=== PATIENT | female | born 1975 | race Caucasian/White ===

== ENCOUNTER 2016-08-08 15:20 | Inpatient (IN) | payer MEDICAID, OTHER ==
[~2016-08-08] VITALS: Ht 160 cm; Wt 59.9 kg
[~2016-08-08 15:20] MED LIST: ALBU18HF2 IH; ALLO100T PO; ALPR2TAB2 PO; ASPI-1035 PO; CARV6.2548 PO; FLUT1DIS3 INH; FURO-151 PO; GABA-531 PO; HYDR-3933 PO; LUBI24CA5 PO; MEGE400O PO; METH2.5T PO; P20 PO; PANT40TA4 PO; POTA10CA42 PO; SIMV10TA2 PO; TEMA15CA46 PO
[2016-08-08] MEDS ORDERED: ONDANSETRON HCL 4MG/2ML VIAL IV STA (17:24)
[2016-08-08] MEDS ORDERED: MORPHINE SULFATE 4 MG/ML CPJ (NOT FOR IM USE) IV STA (17:24)
[2016-08-08] MEDS ORDERED: FUROSEMIDE 40MG/4ML VIAL IV STA (17:24)
[2016-08-08 17:51] LABS: BASOPHILS % 0.2 % (0.0-2.0); EOSINOPHILS % 1.5 % (0.0-5.0); HEMATOCRIT. 27.6 % (36.0-48.0); HEMOGLOBIN. 8.3 g/dL (12.0-16.0); LYMPHOCYTES % 10.7 % (20.0-50.0); MEAN CORPUSCULAR HEMOGLOBIN 26.1 pg (28.0-32.0); MEAN CORPUSCULAR HGB CONC 29.9 g/dL (31.0-37.0); MEAN CORPUSCULAR VOLUME 87.2 fL (81.0-99.0); MEAN PLATELET VOLUME 7.5 fl (7.4-10.4); MONOCYTES % 2.7 % (2.0-8.0); NEUTROPHILS % 84.9 % (40.0-76.0); PLATELET 294 x1000/uL (130-400); RED BLOOD CELL COUNT 3.16 mill/uL (4.2-5.4); RED CELL DISTRIBUTION WIDTH 18.6 % (11.6-14.6); WHITE BLOOD COUNT 18.9 x1000/uL (4.5-11.0)
[2016-08-08 17:58] LABS: PROTHROMBIN TIME 10.5 sec
[2016-08-08 18:08] LABS: ALANINE AMINOTRANSFERASE 12 IU/L (13-61); ALBUMIN 2.3 g/dL (3.4-5.0); ANION GAP 14; CALCIUM 7.4 mg/dL (8.5-10.1); CARBON DIOXIDE 25 mEq/L (21-32); CHLORIDE 107 mEq/L (98-107); CREATINE KINASE 21 IU/L (26-192); INDEX HEMOLYSI 1 (1-3); INDEX ICTERIC 1 (1-4); INDEX LIPEMIC 1 (1-3); LIPASE 372 IU/L (73-393); NT PRO B-TYPE NATRIURETIC PEP 1063 pg/mL (5-125); TROPONIN I < 0.02 ng/mL (0.00-0.04); UREA NITROGEN BLOOD 31 mg/dL (7-21); eGFR > 60 mL/min (>60)
[2016-08-08 18:13] LABS: THYROID STIMULATING HORMONE 0.98 uIU/mL (0.36-3.74)
[2016-08-08] MEDS ORDERED: PIPERACILLIN/TAZ 3.375G PREMIX 50 ML IV ONE (19:30)
[2016-08-09] MEDS ORDERED: ACETAMINOPHEN 325MG TABLET PO PRN (03:30)
[2016-08-09] MEDS ORDERED: ONDANSETRON HCL 4MG/2ML VIAL IV PRN (03:30)
[2016-08-09] MEDS ORDERED: MORPHINE SULFATE 2 MG/ML CPJ (NOT FOR IM USE) IV PRN (03:30)
[2016-08-09] MEDS: LEVOFLOXACIN 500MG PREMIX 100 ML IV SCH (06:48)
[2016-08-09 08:25] LABS: BASOPHILS % 0.4 % (0.0-2.0); EOSINOPHILS % 1.6 % (0.0-5.0); HEMOGLOBIN. 7.8 g/dL (12.0-16.0); LYMPHOCYTES % 12.4 % (20.0-50.0); MEAN CORPUSCULAR HEMOGLOBIN 26.2 pg (28.0-32.0); MEAN CORPUSCULAR HGB CONC 30.1 g/dL (31.0-37.0); MEAN CORPUSCULAR VOLUME 86.9 fL (81.0-99.0); MEAN PLATELET VOLUME 7.2 fl (7.4-10.4); MONOCYTES % 4.3 % (2.0-8.0); NEUTROPHILS % 81.3 % (40.0-76.0); PLATELET 272 x1000/uL (130-400); RED CELL DISTRIBUTION WIDTH 18.9 % (11.6-14.6); WHITE BLOOD COUNT 13.8 x1000/uL (4.5-11.0)
[2016-08-09 08:44] LABS: CALCIUM 7.4 mg/dL (8.5-10.1); CREATINE KINASE MB FRACTION 1.2 ng/mL (0.5-3.6); TROPONIN I 0.02 ng/mL (0.00-0.04)
[2016-08-09] MEDS ORDERED: LISI2.5T47 PO (11:32)
[2016-08-09] MEDS ORDERED: FOLI-43 PO (11:32)
[2016-08-09] MEDS ORDERED: HYDROMORPHONE HCL/PF 2MG/ML CPJ IV PRN (12:00)
[2016-08-09 12:31] LABS: CREATINE KINASE MB FRACTION 1.1 ng/mL (0.5-3.6); TROPONIN I 0.02 ng/mL (0.00-0.04)
[2016-08-10] MEDS: LEVOFLOXACIN 500MG PREMIX 100 ML IV SCH (05:47)
[2016-08-10 06:08] LABS: BASOPHILS % 0.5 % (0.0-2.0); EOSINOPHILS % 1.5 % (0.0-5.0); HEMATOCRIT. 33.8 % (36.0-48.0); LYMPHOCYTES % 12.9 % (20.0-50.0); MEAN CORPUSCULAR HEMOGLOBIN 27.2 pg (28.0-32.0); MEAN CORPUSCULAR HGB CONC 31.7 g/dL (31.0-37.0); MEAN PLATELET VOLUME 8.2 fl (7.4-10.4); MONOCYTES % 6.5 % (2.0-8.0); NEUTROPHILS % 78.6 % (40.0-76.0); PLATELET 235 x1000/uL (130-400); RED BLOOD CELL COUNT 3.93 mill/uL (4.2-5.4); RED CELL DISTRIBUTION WIDTH 16.5 % (11.6-14.6); WHITE BLOOD COUNT 13.2 x1000/uL (4.5-11.0)
[2016-08-10 06:57] LABS: HEMOGLOBIN. 10.7 g/dL (12.0-16.0)
[2016-08-10 07:00] LABS: ALANINE AMINOTRANSFERASE 12 IU/L (13-61); ALBUMIN 2.1 g/dL (3.4-5.0); ANION GAP 10; CALCIUM 7.5 mg/dL (8.5-10.1); CARBON DIOXIDE 26 mEq/L (21-32); CHLORIDE 107 mEq/L (98-107); INDEX HEMOLYSI 1 (1-3); INDEX ICTERIC 1 (1-4); INDEX LIPEMIC 1 (1-3); UREA NITROGEN BLOOD 23 mg/dL (7-21); eGFR > 60 mL/min (>60)
[2016-08-10 11:14] VITALS: BP 119/78
== END 2016-08-10 12:10 | disposition home or self-care (01) | DRG 203 ==
LOC: ER 15:21 → 7WST 21:12
PROVIDERS: ADMIT Hospitalist; ATTEND Hospitalist
PROC: 30233N1 Transfusion of Nonautologous Red Blood Cells into Peripheral Vein, Percutaneous Approach (ICD-10-PCS; principal; 2016-08-09)
DX: R07.89 Other chest pain (principal); I27.2 Other secondary pulmonary hypertension; I42.9 Cardiomyopathy, unspecified; I11.0 Hypertensive heart disease with heart failure; I50.9 Heart failure, unspecified; M34.9 Systemic sclerosis, unspecified; D64.9 Anemia, unspecified; D72.829 Elevated white blood cell count, unspecified; Z82.49 Family history of ischemic heart disease and other diseases of the circulatory system; Z95.810 Presence of automatic (implantable) cardiac defibrillator; Z88.6 Allergy status to analgesic agent
CPT/HCPCS: 36415; 71010; 80048; 80053; 82550; 82553; 83605; 83690; 83880; 84443; 84484; 85025; 85610; 85730; 86850; 86900; 86920; 87040; 93005; 93306; 96365; 96375; 99285; J1170; J1940; J1956; J2270; J2405; J2543; J7050; P9016

== ENCOUNTER 2016-11-20 16:06 | Inpatient (IN) | payer OTHER ==
[~2016-11-20] VITALS: Ht 162.6 cm; Wt 49.0 kg
[~2016-11-20 16:06] MED LIST changes: -ALBU18HF2 IH; +ALBU18HF2 INH; -ASPI-1035 PO; +ASPI-1159 PO; +FOLI-43 PO; +LISI2.5T47 PO; -TEMA15CA46 PO; +TEMA15CA5 PO
[2016-11-20] MEDS ORDERED: SODIUM CHLORIDE 0.9% 1,000 ML IV ONE (17:00)
[2016-11-20 17:36] LABS: BASOPHILS % 0.5 % (0.0-2.0); EOSINOPHILS % 0.9 % (0.0-5.0); HEMATOCRIT. 31.1 % (36.0-48.0); HEMOGLOBIN. 9.6 g/dL (12.0-16.0); LYMPHOCYTES % 13.9 % (20.0-50.0); MEAN CORPUSCULAR HEMOGLOBIN 25.9 pg (28.0-32.0); MEAN CORPUSCULAR VOLUME 83.9 fL (81.0-99.0); MEAN PLATELET VOLUME 7.9 fl (7.4-10.4); MONOCYTES % 4.3 % (2.0-8.0); NEUTROPHILS % 80.4 % (40.0-76.0); PLATELET 193 x1000/uL (130-400); RED BLOOD CELL COUNT 3.71 mill/uL (4.2-5.4); RED CELL DISTRIBUTION WIDTH 18.4 % (11.6-14.6)
[2016-11-20] MEDS ORDERED: ACETAMINOPHEN 325MG TABLET PO ONE (20:30)
[2016-11-20] MEDS ORDERED: CLONIDINE 0.1MG TABLET PO PRN (21:15)
[2016-11-20] MEDS ORDERED: HYDROCODONE/ACETAMINOPHEN 5/325MG TABLET PO PRN (21:15)
[2016-11-20] MEDS ORDERED: ACETAMINOPHEN 325MG TABLET PO PRN (21:15)
[2016-11-20] MEDS ORDERED: ONDANSETRON HCL 4MG/2ML VIAL IV PRN (21:15)
[2016-11-20] MEDS ORDERED: MAGNESIUM/ALUMINUM HYDROXIDE/SIMETHICONE 30ML UDC PO PRN (21:15)
[2016-11-20] MEDS ORDERED: IPRATROPIUM/ALBUTEROL 0.5-3(2.5)MG/3ML NEB INH PRN (21:15)
[2016-11-20] MEDS ORDERED: MEDICATION NOT ON FORMULARY EA (Alprazolam (Xanax) 2 MG) PO PRN (22:45)
[2016-11-20] MEDS: ALPRAZOLAM 0.5 MG TABLET PO PRN (23:22)
[2016-11-20] MEDS ORDERED: DIGO250T16 PO (23:32)
[2016-11-20] MEDS: ENOXAPARIN 30MG/0.3ML SYR SUBCUT SCH (23:37)
[2016-11-20] MEDS ORDERED: TEMAZEPAM 15MG CAPSULE PO PRN (23:45)
[2016-11-20] MEDS ORDERED: LISI10TA5 PO (23:55)
[2016-11-20] MEDS ORDERED: SIMV10TA6 PO (23:55)
[2016-11-21 00:11] LABS: CREATINE KINASE MB FRACTION 4.7 ng/mL (0.5-3.6); TROPONIN I 0.05 ng/mL (0.00-0.04)
[2016-11-21 00:40] LABS: CLARITY URINE CLEAR (CLEAR); COLOR URINE YELLOW (YELLOW); KETONES URINE NEGATIVE (NEGATIVE); LEUKOCYTE ESTERASE URINE NEGATIVE (NEGATIVE); NITRITE URINE NEGATIVE (NEGATIVE); OCCULT BLOOD URINE NEGATIVE (NEGATIVE); PH URINE 5.5 (4.5-8.0); PROTEIN URINE NEGATIVE (NEGATIVE); SPECIFIC GRAVITY URINE 1.017 (1.005-1.030); UROBILINOGEN URINE 0.2 E.U./dL (0.2-1.0)
[2016-11-21 01:07] LABS: *AMPHETAMINES SCREEN URINE NEGATIVE (NEGATIVE); *BARBITURATES SCREEN URINE NEGATIVE (NEGATIVE); *COCAINE SCREEN URINE NEGATIVE (NEGATIVE); CANNABINOID URINE SCREEN NEGATIVE (NEGATIVE); METHADONE URINE SCREEN NEGATIVE (NEGATIVE); OPIATES URINE SCREEN NEGATIVE (NEGATIVE); PHENCYCLIDINE URINE SCREEN NEGATIVE (NEGATIVE)
[2016-11-21 01:24] LABS: *BENZODIAZEPINES SCREEN URINE PRESUMTIVE POSITIVE (NEGATIVE)
[2016-11-21 06:19] LABS: BASOPHILS % 0.8 % (0.0-2.0); EOSINOPHILS % 1.4 % (0.0-5.0); HEMATOCRIT. 29.9 % (36.0-48.0); HEMOGLOBIN. 9.2 g/dL (12.0-16.0); LYMPHOCYTES % 20.1 % (20.0-50.0); MEAN CORPUSCULAR HEMOGLOBIN 25.7 pg (28.0-32.0); MEAN CORPUSCULAR VOLUME 83.5 fL (81.0-99.0); MEAN PLATELET VOLUME 8.2 fl (7.4-10.4); MONOCYTES % 4.6 % (2.0-8.0); NEUTROPHILS % 73.1 % (40.0-76.0); PLATELET 214 x1000/uL (130-400); RED BLOOD CELL COUNT 3.58 mill/uL (4.2-5.4)
[2016-11-21 06:58] LABS: CREATINE KINASE MB FRACTION 4.3 ng/mL (0.5-3.6); TROPONIN I 0.04 ng/mL (0.00-0.04)
[2016-11-21] MEDS: FOLIC ACID 1MG TABLET PO SCH (08:35)
[2016-11-21] MEDS: ALLOPURINOL 100 MG TABLET PO SCH ×2 (08:36→17:35)
[2016-11-21] MEDS: DIGOXIN 250MCG TABLET PO SCH (08:36)
[2016-11-21] MEDS: PANTOPRAZOLE 40MG DR TABLET PO SCH (08:36)
[2016-11-21] MEDS: LISINOPRIL 10MG TABLET PO SCH (08:36)
[2016-11-21] MEDS: ASPIRIN 81MG EC TABLET PO SCH (08:36)
[2016-11-21] MEDS: CARVEDILOL 12.5MG TABLET PO SCH ×2 (08:36→17:32)
[2016-11-21] MEDS: MEGESTROL ACETATE 40MG TABLET PO SCH (08:45)
[2016-11-21] MEDS ORDERED: MEGESTROL ACETATE 40 MG PO SCH (09:00)
[2016-11-21] MEDS: METHYLPREDNISOLONE SOD SUCC 40 MG/ML VIAL IV SCH (12:38)
[2016-11-21] MEDS: IPRATROPIUM/ALBUTEROL 0.5-3(2.5)MG/3ML NEB HHN SCH ×2 (16:40→21:13)
[2016-11-21] MEDS ORDERED: MEDICATION NOT ON FORMULARY EA (Simvastatin 10 MG) PO SCH (17:00)
[2016-11-21] MEDS: FUROSEMIDE 40MG/4ML VIAL IVP SCH (17:32)
[2016-11-21] MEDS: ATORVASTATIN CALCIUM 10MG TABLET PO SCH (22:03)
[2016-11-21] MEDS: ENOXAPARIN 30MG/0.3ML SYR SUBCUT SCH (22:05)
[2016-11-21] MEDS: ALPRAZOLAM 0.5 MG TABLET PO PRN (22:05)
[2016-11-21] MEDS ORDERED: ONDANSETRON HCL 4MG/2ML VIAL IV PRN (22:15)
[2016-11-22] MEDS: IPRATROPIUM/ALBUTEROL 0.5-3(2.5)MG/3ML NEB HHN SCH ×6 (00:47→20:40)
[2016-11-22 05:36] LABS: BASOPHILS % 0.2 % (0.0-2.0); HEMATOCRIT. 32.9 % (36.0-48.0); HEMOGLOBIN. 10.2 g/dL (12.0-16.0); LYMPHOCYTES % 8.5 % (20.0-50.0); MEAN CORPUSCULAR HEMOGLOBIN 25.7 pg (28.0-32.0); MEAN PLATELET VOLUME 8.3 fl (7.4-10.4); MONOCYTES % 1.9 % (2.0-8.0); NEUTROPHILS % 89.4 % (40.0-76.0); PLATELET 217 x1000/uL (130-400); RED BLOOD CELL COUNT 3.97 mill/uL (4.2-5.4); RED CELL DISTRIBUTION WIDTH 19.1 % (11.6-14.6)
[2016-11-22] MEDS: PANTOPRAZOLE 40MG DR TABLET PO SCH (08:13)
[2016-11-22] MEDS: ASPIRIN 81MG EC TABLET PO SCH (08:23)
[2016-11-22] MEDS: MEGESTROL ACETATE 40MG TABLET PO SCH (08:23)
[2016-11-22] MEDS: FOLIC ACID 1MG TABLET PO SCH (08:23)
[2016-11-22] MEDS: CARVEDILOL 12.5MG TABLET PO SCH ×2 (08:24→18:38)
[2016-11-22] MEDS: LISINOPRIL 10MG TABLET PO SCH (08:25)
[2016-11-22] MEDS ORDERED: METHOTREXATE SODIUM 2 . 5MG TABLET PO SCH ×2 (09:00)
[2016-11-22] MEDS: FUROSEMIDE 40MG/4ML VIAL IVP SCH (09:18)
[2016-11-22] MEDS: METHYLPREDNISOLONE SOD SUCC 40 MG/ML VIAL IV SCH (09:18)
[2016-11-22] MEDS: ALLOPURINOL 100 MG TABLET PO SCH ×2 (12:11→18:37)
[2016-11-22] MEDS ORDERED: METHOTREXATE SODIUM 2 . 5MG TABLET PO NR (14:00)
[2016-11-22] MEDS: ATORVASTATIN CALCIUM 10MG TABLET PO SCH (21:28)
[2016-11-22] MEDS: ENOXAPARIN 30MG/0.3ML SYR SUBCUT SCH (21:28)
[2016-11-22] MEDS: ALPRAZOLAM 0.5 MG TABLET PO PRN (22:44)
[2016-11-23] MEDS: IPRATROPIUM/ALBUTEROL 0.5-3(2.5)MG/3ML NEB HHN SCH ×6 (00:54→21:09)
[2016-11-23 06:17] LABS: BASOPHILS % 0.4 % (0.0-2.0); EOSINOPHILS % 0.2 % (0.0-5.0); HEMATOCRIT. 32.9 % (36.0-48.0); HEMOGLOBIN. 10.3 g/dL (12.0-16.0); MEAN CORPUSCULAR HEMOGLOBIN 25.7 pg (28.0-32.0); MEAN CORPUSCULAR VOLUME 82.2 fL (81.0-99.0); MEAN PLATELET VOLUME 8.4 fl (7.4-10.4); MONOCYTES % 4.9 % (2.0-8.0); NEUTROPHILS % 78.5 % (40.0-76.0); PLATELET 226 x1000/uL (130-400); RED CELL DISTRIBUTION WIDTH 19.5 % (11.6-14.6)
[2016-11-23] MEDS: LISINOPRIL 10MG TABLET PO SCH (08:34)
[2016-11-23] MEDS: CARVEDILOL 12.5MG TABLET PO SCH ×3 (08:35→18:37)
[2016-11-23] MEDS: MEGESTROL ACETATE 40MG TABLET PO SCH (08:37)
[2016-11-23] MEDS: ASPIRIN 81MG EC TABLET PO SCH (08:37)
[2016-11-23] MEDS: DIGOXIN 250MCG TABLET PO SCH (08:37)
[2016-11-23] MEDS: PANTOPRAZOLE 40MG DR TABLET PO SCH (08:37)
[2016-11-23] MEDS: FOLIC ACID 1MG TABLET PO SCH (08:37)
[2016-11-23] MEDS: ALLOPURINOL 100 MG TABLET PO SCH ×2 (08:39→18:39)
[2016-11-23] MEDS: METHYLPREDNISOLONE SOD SUCC 40 MG/ML VIAL IV SCH (09:06)
[2016-11-23] MEDS: FUROSEMIDE 40MG/4ML VIAL IVP SCH (09:06)
[2016-11-23] MEDS ORDERED: SODIUM CHLORIDE 0.9% 500 ML IV ONE (13:15)
[2016-11-23] MEDS ORDERED: PANTOPRAZOLE SODIUM 40 MG/VIAL IV SCH (15:15)
[2016-11-23] MEDS ORDERED: DIATR MEGLU/DIATRIZOATE SOLN 30ML PO SCH (16:45)
[2016-11-23] MEDS: SODIUM CHLORIDE 0.9% 1,000 ML IV SCH (20:50)
[2016-11-23] MEDS: ATORVASTATIN CALCIUM 10MG TABLET PO SCH (20:51)
[2016-11-23] MEDS: CEFOXITIN SODIUM 1 G in DEXTROSE 5% WATER 50 ML IV SCH (20:51)
[2016-11-23] MEDS: ENOXAPARIN 30MG/0.3ML SYR SUBCUT SCH (20:51)
[2016-11-23] MEDS: ALPRAZOLAM 0.5 MG TABLET PO PRN (23:50)
[2016-11-24] MEDS: IPRATROPIUM/ALBUTEROL 0.5-3(2.5)MG/3ML NEB HHN SCH ×6 (00:30→20:38)
[2016-11-24] MEDS: CEFOXITIN SODIUM 1 G in DEXTROSE 5% WATER 50 ML IV SCH ×2 (03:15→11:57)
[2016-11-24] MEDS: SODIUM CHLORIDE 0.9% 1,000 ML IV SCH (05:05)
[2016-11-24 07:45] LABS: PARTIAL THROMBOPLASTIN TIME 21.6 sec (23.4-31.0); PROTHROMBIN TIME 10.6 sec (9.4-11.6)
[2016-11-24 07:52] LABS: BASOPHILS % 0.4 % (0.0-2.0); HEMATOCRIT. 29.3 % (36.0-48.0); LYMPHOCYTES % 12.4 % (20.0-50.0); MEAN CORPUSCULAR HEMOGLOBIN 25.4 pg (28.0-32.0); MEAN CORPUSCULAR VOLUME 82.9 fL (81.0-99.0); MEAN PLATELET VOLUME 9.2 fl (7.4-10.4); NEUTROPHILS % 84.2 % (40.0-76.0); PLATELET 196 x1000/uL (130-400); RED BLOOD CELL COUNT 3.53 mill/uL (4.2-5.4); RED CELL DISTRIBUTION WIDTH 18.9 % (11.6-14.6)
[2016-11-24 08:17] LABS: CARBON DIOXIDE 25 mEq/L (21-32); CHLORIDE 106 mEq/L (98-107)
[2016-11-24] MEDS: ALLOPURINOL 100 MG TABLET PO SCH ×2 (08:31→17:33)
[2016-11-24] MEDS: PANTOPRAZOLE 40MG DR TABLET PO SCH (08:31)
[2016-11-24] MEDS: FOLIC ACID 1MG TABLET PO SCH (08:31)
[2016-11-24] MEDS: ASPIRIN 81MG EC TABLET PO SCH (08:31)
[2016-11-24] MEDS: MEGESTROL ACETATE 40MG TABLET PO SCH (08:31)
[2016-11-24] MEDS: LISINOPRIL 10MG TABLET PO SCH (08:34)
[2016-11-24] MEDS: CARVEDILOL 12.5MG TABLET PO SCH ×2 (08:34→17:00)
[2016-11-24] MEDS: METHYLPREDNISOLONE SOD SUCC 40 MG/ML VIAL IV SCH (09:46)
[2016-11-24] MEDS: FUROSEMIDE 40MG/4ML VIAL IVP SCH (09:46)
[2016-11-24] MEDS: CLINDAMYCIN HCL 150MG CAPSULE PO SCH ×2 (17:33→23:53)
[2016-11-24] MEDS: PREDNISONE 20MG TABLET PO SCH (17:33)
[2016-11-24] MEDS: ATORVASTATIN CALCIUM 10MG TABLET PO SCH (21:27)
[2016-11-24] MEDS: ENOXAPARIN 40MG/0.4ML SYR SUBCUT SCH (21:28)
[2016-11-24] MEDS: METRONIDAZOLE 500MG TABLET PO SCH (21:28)
[2016-11-24] MEDS: ALPRAZOLAM 0.5 MG TABLET PO PRN (23:57)
[2016-11-25] MEDS: IPRATROPIUM/ALBUTEROL 0.5-3(2.5)MG/3ML NEB HHN SCH ×6 (01:03→20:58)
[2016-11-25] MEDS: CLINDAMYCIN HCL 150MG CAPSULE PO SCH ×3 (05:47→20:14)
[2016-11-25] MEDS: METRONIDAZOLE 500MG TABLET PO SCH ×2 (05:47→15:17)
[2016-11-25 06:38] LABS: HEMATOCRIT. 30.4 % (36.0-48.0); HEMOGLOBIN. 9.4 g/dL (12.0-16.0); MEAN CORPUSCULAR HEMOGLOBIN 25.5 pg (28.0-32.0); MEAN CORPUSCULAR VOLUME 82.6 fL (81.0-99.0); PLATELET 226 x1000/uL (130-400); RED BLOOD CELL COUNT 3.68 mill/uL (4.2-5.4); RED CELL DISTRIBUTION WIDTH 19.2 % (11.6-14.6)
[2016-11-25 06:55] LABS: CARBON DIOXIDE 26 mEq/L (21-32); CHLORIDE 104 mEq/L (98-107)
[2016-11-25] MEDS: PREDNISONE 20MG TABLET PO SCH ×2 (09:15→17:58)
[2016-11-25] MEDS: FAMOTIDINE 20MG TABLET PO SCH ×2 (09:15→17:58)
[2016-11-25] MEDS: ASPIRIN 81MG EC TABLET PO SCH (09:15)
[2016-11-25] MEDS: FOLIC ACID 1MG TABLET PO SCH (09:15)
[2016-11-25] MEDS: MEGESTROL ACETATE 40MG TABLET PO SCH (09:15)
[2016-11-25] MEDS: CARVEDILOL 12.5MG TABLET PO SCH ×2 (09:16→17:58)
[2016-11-25] MEDS: DIGOXIN 250MCG TABLET PO SCH (09:21)
[2016-11-25] MEDS: ALLOPURINOL 100 MG TABLET PO SCH ×2 (09:21→17:58)
[2016-11-25] MEDS: LISINOPRIL 10MG TABLET PO SCH (09:21)
[2016-11-25] MEDS ORDERED: FUROSEMIDE 40MG TABLET PO SCH (13:00)
[2016-11-25 13:40] LABS: PLATELET ESTIMATE NORMAL
[2016-11-25] MEDS: ATORVASTATIN CALCIUM 10MG TABLET PO SCH (20:14)
[2016-11-25] MEDS: ENOXAPARIN 40MG/0.4ML SYR SUBCUT SCH (20:15)
[2016-11-25 20:58] VITALS: BP 106/63
[2016-11-29] MEDS ORDERED: METHOTREXATE SODIUM 2 . 5MG TABLET PO SCH (09:00)
[2017-03-14] MEDS ORDERED: LORA2TAB2 PO (10:31)
[2017-03-14] MEDS ORDERED: ATOR10TA PO (10:33)
[2017-03-14] MEDS ORDERED: LISI10TA5 PO (10:33)
[2017-03-14] MEDS ORDERED: PRED5TAB48 PO (10:33)
[2017-03-14] MEDS ORDERED: FURO20TA4 PO (10:33)
[2017-04-06] MEDS ORDERED: METO-293 PO (10:30)
[2017-04-06] MEDS ORDERED: FERR325T6 PO (10:30)
[2017-04-06] MEDS ORDERED: BISA10SU62 RC (10:30)
== END 2016-11-25 19:20 | disposition home or self-care (01) | DRG 133 ==
LOC: ER 16:40 → 7WST 19:16 → ENRESERV 19:51
PROVIDERS: ADMIT Internal Medicine; ATTEND Internal Medicine
DX: J96.00 Acute respiratory failure, unspecified whether with hypoxia or hypercapnia (principal); I50.23 Acute on chronic systolic (congestive) heart failure; J84.9 Interstitial pulmonary disease, unspecified; N17.9 Acute kidney failure, unspecified; I95.9 Hypotension, unspecified; I13.0 Hypertensive heart and chronic kidney disease with heart failure and stage 1 through stage 4 chronic kidney disease, or unspecified chronic kidney disease; I42.9 Cardiomyopathy, unspecified; K56.0 Paralytic ileus; M34.9 Systemic sclerosis, unspecified; J45.901 Unspecified asthma with (acute) exacerbation; E87.5 Hyperkalemia; K21.9 Gastro-esophageal reflux disease without esophagitis; J45.909 Unspecified asthma, uncomplicated; N18.9 Chronic kidney disease, unspecified; M06.9 Rheumatoid arthritis, unspecified; D64.9 Anemia, unspecified; K52.9 Noninfective gastroenteritis and colitis, unspecified; K80.20 Calculus of gallbladder without cholecystitis without obstruction; M19.90 Unspecified osteoarthritis, unspecified site; R26.2 Difficulty in walking, not elsewhere classified; R63.0 Anorexia; Z88.6 Allergy status to analgesic agent; Z88.5 Allergy status to narcotic agent; Z79.1 Long term (current) use of non-steroidal anti-inflammatories (NSAID); Z82.49 Family history of ischemic heart disease and other diseases of the circulatory system; Z95.810 Presence of automatic (implantable) cardiac defibrillator; Z99.3 Dependence on wheelchair; Z79.899 Other long term (current) drug therapy; Z79.51 Long term (current) use of inhaled steroids
CPT/HCPCS: 36415; 71010; 74000; 74176; 78582; 80048; 80053; 80061; 80305; 81003; 81025; 82270; 82550; 82553; 83735; 83880; 84443; 84484; 85025; 85379; 85610; 85730; 87015; 87040; 87045; 87427; 87449; 87493; 89055; 93005; 93306; 93970; 94620; 94640; 94664; 96360; 97163; 97166; 99285; A9558; J0694; J1650; J1940; J2920; J7030; J7040; J7060; J7512; J7620; J8610; Q9963

== ENCOUNTER 2016-12-01 03:32 | Emergency (ER) | payer OTHER ==
[~2016-12-01] VITALS: Ht 157.5 cm; Wt 49.0 kg
[~2016-12-01 03:32] MED LIST changes: +DIGO250T16 PO; -FURO-151 PO; -GABA-531 PO; -LISI2.5T47 PO; -LUBI24CA5 PO; -SIMV10TA2 PO; +SIMV10TA6 PO
[2016-12-01] MEDS ORDERED: SODIUM CHLORIDE 0.9% 1,000 ML IV ONE (04:16)
[2016-12-01] MEDS ORDERED: ASPIRIN 325MG TABLET PO ONE (05:00)
[2016-12-01 05:03] LABS: HEMATOCRIT. 32.4 % (36.0-48.0); MEAN CORPUSCULAR HEMOGLOBIN 25.3 pg (28.0-32.0); MEAN CORPUSCULAR VOLUME 82.4 fL (81.0-99.0); MEAN PLATELET VOLUME 8.2 fl (7.4-10.4); PLATELET 232 x1000/uL (130-400); RED BLOOD CELL COUNT 3.94 mill/uL (4.2-5.4); RED CELL DISTRIBUTION WIDTH 19.3 % (11.6-14.6)
[2016-12-01 05:11] LABS: PROTHROMBIN TIME 10.1 sec (9.4-11.6)
[2016-12-01 05:23] LABS: HCG SCREEN NEGATIVE
[2016-12-01 05:32] LABS: CARBON DIOXIDE 24 mEq/L (21-32); CHLORIDE 104 mEq/L (98-107); TROPONIN I 0.35 ng/mL (0.00-0.04)
[2016-12-01 05:45] VITALS: BP 109/73
[2016-12-01 06:44] LABS: PLATELET ESTIMATE NORMAL
== END 2016-12-01 05:43 | disposition short-term general hospital (02) ==
LOC: ER 03:32 → CANBEDREQ 08:35
DX: I21.3 ST elevation (STEMI) myocardial infarction of unspecified site (principal); I50.9 Heart failure, unspecified; J45.909 Unspecified asthma, uncomplicated; N28.9 Disorder of kidney and ureter, unspecified; K21.9 Gastro-esophageal reflux disease without esophagitis; Z98.890 Other specified postprocedural states; Z88.5 Allergy status to narcotic agent; Z79.82 Long term (current) use of aspirin; Z88.8 Allergy status to other drugs, medicaments and biological substances
CPT/HCPCS: 36415; 71010; 80053; 83880; 84484; 84703; 85025; 85610; 93005; 96360; 99291; J7030; Z7610

== ENCOUNTER 2017-08-21 20:23 | Inpatient (IN) | payer OTHER ==
[~2017-08-21] VITALS: Ht 157.5 cm; Wt 43.1 kg
[~2017-08-21 20:23] MED LIST changes: -ALPR2TAB2 PO; +BISA10SU62 RC; +FERR325T6 PO; -FLUT1DIS3 INH; +FURO20TA4 PO; +LISI10TA5 PO; +LORA2TAB2 PO; +METO-293 PO; -P20 PO; +PRED5TAB48 PO; -TEMA15CA5 PO
[2017-08-21] MEDS ORDERED: FUROSEMIDE 40MG/4ML VIAL IV ONE (21:30)
[2017-08-21] MEDS ORDERED: NITROGLYCERIN OINT 1GM/INCH UDPKT TD ONE (21:30)
[2017-08-21 21:49] LABS: BASOPHILS % 0.6 % (0.0-2.0); EOSINOPHILS % 0.6 % (0.0-5.0); HEMATOCRIT. 31.6 % (36.0-48.0); HEMOGLOBIN. 9.9 g/dL (12.0-16.0); LYMPHOCYTES % 8.3 % (20.0-50.0); MEAN CORPUSCULAR HEMOGLOBIN 23.9 pg (28.0-32.0); MEAN CORPUSCULAR VOLUME 76.5 fL (81.0-99.0); MEAN PLATELET VOLUME 7.6 fl (7.4-10.4); MONOCYTES % 5.3 % (2.0-8.0); NEUTROPHILS % 85.2 % (40.0-76.0); PLATELET 420 x1000/uL (130-400); RED BLOOD CELL COUNT 4.14 mill/uL (4.2-5.4); RED CELL DISTRIBUTION WIDTH 17.5 % (11.6-14.6)
[2017-08-21 21:55] LABS: CHLORIDE 105 mEq/L (98-107)
[2017-08-21 21:57] LABS: INR 1.1; PROTHROMBIN TIME 11.4 sec (9.4-11.6)
[2017-08-21 22:18] LABS: HCG SCREEN NEGATIVE
[2017-08-21] MEDS ORDERED: ONDANSETRON HCL 4MG/2ML VIAL IV ONE (22:45)
[2017-08-22] MEDS ORDERED: POTASSIUM CHLORIDE 20MEQ TABLET SR PO NR (01:00)
[2017-08-22 04:00] VITALS: BP 117/75
[2017-08-22] MEDS ORDERED: ATOR10TA69 PO (04:15)
[2017-08-22] MEDS ORDERED: HYDR-4009 PO (04:15)
[2017-08-22] MEDS ORDERED: DIPHENOXYLATE/ATROPINE 2.5/0.025MG TABLET PO PRN (04:30)
[2017-08-22 04:36] VITALS: BP 101/74
[2017-08-22 07:59] VITALS: BP 104/73
[2017-08-22] MEDS: POTASSIUM CHLORIDE 10MEQ TABLET SR PO SCH (08:08)
[2017-08-22] MEDS: FOLIC ACID 1MG TABLET PO SCH (08:08)
[2017-08-22] MEDS: ASPIRIN 81MG EC TABLET PO SCH (08:09)
[2017-08-22] MEDS: PANTOPRAZOLE 40MG DR TABLET PO SCH (08:09)
[2017-08-22] MEDS: ALLOPURINOL 100 MG TABLET PO SCH (08:09)
[2017-08-22] MEDS: CARVEDILOL 6.25 MG TABLET PO SCH ×3 (08:10→20:16)
[2017-08-22] MEDS: LISINOPRIL 10MG TABLET PO SCH ×2 (08:10→08:15)
[2017-08-22] MEDS ORDERED: FUROSEMIDE 40MG TABLET PO SCH (09:00)
[2017-08-22] MEDS: ALBUTEROL (0.083%) 2.5MG/3ML NEB HHN SCH ×5 (09:05→20:31)
[2017-08-22] MEDS: CEFTRIAXONE 1 G PREMIX 50 ML IV SCH (11:36)
[2017-08-22] MEDS: AZITHROMYCIN 500 MG TABLET PO SCH (11:36)
[2017-08-22 12:00] VITALS: BP 107/77
[2017-08-22] MEDS ORDERED: MORPHINE SULFATE 2 MG/ML CPJ (NOT FOR IM USE) IV PRN (12:30)
[2017-08-22] MEDS: HYDROCODONE/ACETAMINOPHEN 5/325MG TABLET PO PRN ×2 (13:33→18:16)
[2017-08-22 16:40] VITALS: BP 104/68
[2017-08-22 17:30] LABS: CLARITY URINE CLEAR (CLEAR); COLOR URINE YELLOW (YELLOW); KETONES URINE NEGATIVE (NEGATIVE); LEUKOCYTE ESTERASE URINE TRACE (NEGATIVE); NITRITE URINE NEGATIVE (NEGATIVE); OCCULT BLOOD URINE NEGATIVE (NEGATIVE); PROTEIN URINE NEGATIVE (NEGATIVE); SPECIFIC GRAVITY URINE 1.011 (1.005-1.030); UROBILINOGEN URINE 0.2 E.U./dL (0.2-1.0)
[2017-08-22] MEDS: FUROSEMIDE 40MG TABLET PO SCH (18:15)
[2017-08-22] MEDS: DIGOXIN 250MCG TABLET PO SCH (18:16)
[2017-08-22 20:00] VITALS: BP 123/64
[2017-08-22] MEDS: LORAZEPAM 1MG TABLET PO SCH (20:16)
[2017-08-22] MEDS ORDERED: MORPHINE SULFATE 4 MG/ML CPJ (NOT FOR IM USE) IV PRN (20:23)
[2017-08-22] MEDS: METRONIDAZOLE 500MG TABLET PO SCH (21:07)
[2017-08-22] MEDS: ATORVASTATIN CALCIUM 10MG TABLET PO SCH (21:07)
[2017-08-22 22:09] LABS: CREATINE KINASE MB FRACTION 1.6 ng/mL (0.5-3.6)
[2017-08-23] VITALS: BP 101/73
[2017-08-23 04:00] VITALS: BP 93/67
[2017-08-23] MEDS: ALBUTEROL (0.083%) 2.5MG/3ML NEB HHN SCH ×6 (04:40→20:45)
[2017-08-23] MEDS: METRONIDAZOLE 500MG TABLET PO SCH ×3 (06:03→21:51)
[2017-08-23] MEDS: FUROSEMIDE 40MG TABLET PO SCH ×2 (06:04→17:35)
[2017-08-23 07:05] LABS: BASOPHILS % 0.7 % (0.0-2.0); EOSINOPHILS % 1.3 % (0.0-5.0); HEMATOCRIT. 31.5 % (36.0-48.0); HEMOGLOBIN. 9.8 g/dL (12.0-16.0); LYMPHOCYTES % 9.5 % (20.0-50.0); MEAN CORPUSCULAR HEMOGLOBIN 23.8 pg (28.0-32.0); MEAN CORPUSCULAR VOLUME 76.3 fL (81.0-99.0); MONOCYTES % 7.7 % (2.0-8.0); NEUTROPHILS % 80.8 % (40.0-76.0); PLATELET 431 x1000/uL (130-400); RED BLOOD CELL COUNT 4.13 mill/uL (4.2-5.4); RED CELL DISTRIBUTION WIDTH 17.7 % (11.6-14.6)
[2017-08-23 07:25] LABS: CHLORIDE 105 mEq/L (98-107)
[2017-08-23 08:00] VITALS: BP 90/55
[2017-08-23] MEDS: CARVEDILOL 6.25 MG TABLET PO SCH ×2 (09:00→21:00)
[2017-08-23] MEDS: LISINOPRIL 10MG TABLET PO SCH (09:00)
[2017-08-23] MEDS: ALLOPURINOL 100 MG TABLET PO SCH (10:07)
[2017-08-23] MEDS: ASPIRIN 81MG EC TABLET PO SCH (10:07)
[2017-08-23] MEDS: PANTOPRAZOLE 40MG DR TABLET PO SCH (10:07)
[2017-08-23] MEDS: AZITHROMYCIN 500 MG TABLET PO SCH (10:07)
[2017-08-23] MEDS: FOLIC ACID 1MG TABLET PO SCH (10:07)
[2017-08-23] MEDS: POTASSIUM CHLORIDE 10MEQ TABLET SR PO SCH (10:07)
[2017-08-23] MEDS: CEFTRIAXONE 1 G PREMIX 50 ML IV SCH (10:07)
[2017-08-23 12:00] VITALS: BP 100/65
[2017-08-23] MEDS ORDERED: POTASSIUM CHLORIDE 20MEQ TABLET SR PO NR (14:45)
[2017-08-23] MEDS: HYDROCODONE/ACETAMINOPHEN 10/325MG TABLET PO PRN (15:47)
[2017-08-23 16:00] VITALS: BP 101/63
[2017-08-23] MEDS: DIGOXIN 250MCG TABLET PO SCH (17:35)
[2017-08-23] MEDS ORDERED: ONDANSETRON HCL 4MG/2ML VIAL IV PRN (19:00)
[2017-08-23 20:00] VITALS: BP 92/62
[2017-08-23] MEDS: LORAZEPAM 1MG TABLET PO SCH (21:51)
[2017-08-23] MEDS: ATORVASTATIN CALCIUM 10MG TABLET PO SCH (21:51)
[2017-08-24] VITALS (7 sets, daily range): BP systolic 89–104; BP diastolic 57–71
[2017-08-24] MEDS: ALBUTEROL (0.083%) 2.5MG/3ML NEB HHN SCH ×6 (00:50→21:30)
[2017-08-24] MEDS: FUROSEMIDE 40MG TABLET PO SCH (06:31)
[2017-08-24] MEDS: CARVEDILOL 6.25 MG TABLET PO SCH ×2 (09:00→20:57)
[2017-08-24] MEDS: LISINOPRIL 10MG TABLET PO SCH (09:00)
[2017-08-24] MEDS: CEFTRIAXONE 1 G PREMIX 50 ML IV SCH (09:18)
[2017-08-24] MEDS: FUROSEMIDE 40MG/4ML VIAL IVP SCH ×2 (10:15→17:15)
[2017-08-24 10:24] LABS: BASOPHILS % 0.7 % (0.0-2.0); EOSINOPHILS % 2.3 % (0.0-5.0); HEMATOCRIT. 32.6 % (36.0-48.0); HEMOGLOBIN. 10.2 g/dL (12.0-16.0); LYMPHOCYTES % 11.3 % (20.0-50.0); MEAN CORPUSCULAR VOLUME 76.5 fL (81.0-99.0); MEAN PLATELET VOLUME 8.2 fl (7.4-10.4); MONOCYTES % 7.9 % (2.0-8.0); NEUTROPHILS % 77.8 % (40.0-76.0); PLATELET 414 x1000/uL (130-400); RED BLOOD CELL COUNT 4.26 mill/uL (4.2-5.4); RED CELL DISTRIBUTION WIDTH 17.7 % (11.6-14.6)
[2017-08-24] MEDS: ENOXAPARIN 40MG/0.4ML SYR SUBCUT SCH (10:30)
[2017-08-24] MEDS: FOLIC ACID 1MG TABLET PO SCH (12:11)
[2017-08-24] MEDS: AZITHROMYCIN 500 MG TABLET PO SCH (12:11)
[2017-08-24] MEDS: ASPIRIN 81MG EC TABLET PO SCH (12:12)
[2017-08-24] MEDS: FAMOTIDINE 20MG TABLET PO SCH (12:12)
[2017-08-24] MEDS: ALLOPURINOL 100 MG TABLET PO SCH (12:12)
[2017-08-24] MEDS: POTASSIUM CHLORIDE 20MEQ TABLET SR PO SCH (12:14)
[2017-08-24] MEDS: DIGOXIN 250MCG TABLET PO SCH (17:33)
[2017-08-24] MEDS: HYDROCODONE/ACETAMINOPHEN 10/325MG TABLET PO PRN (17:34)
[2017-08-24] MEDS: LORAZEPAM 1MG TABLET PO SCH (21:51)
[2017-08-24] MEDS: ATORVASTATIN CALCIUM 10MG TABLET PO SCH (21:51)
[2017-08-25] VITALS: BP 128/79
[2017-08-25 04:00] VITALS: BP 107/66
[2017-08-25] MEDS: FUROSEMIDE 40MG/4ML VIAL IVP SCH (05:31)
[2017-08-25] MEDS: CARVEDILOL 6.25 MG TABLET PO SCH (08:24)
[2017-08-25] MEDS: LISINOPRIL 10MG TABLET PO SCH (08:25)
[2017-08-25] MEDS: ENOXAPARIN 40MG/0.4ML SYR SUBCUT SCH (08:47)
[2017-08-25] MEDS: AZITHROMYCIN 500 MG TABLET PO SCH (08:50)
[2017-08-25] MEDS: POTASSIUM CHLORIDE 20MEQ TABLET SR PO SCH (08:50)
[2017-08-25] MEDS: ALLOPURINOL 100 MG TABLET PO SCH (08:50)
[2017-08-25] MEDS: FAMOTIDINE 20MG TABLET PO SCH (08:50)
[2017-08-25] MEDS: ASPIRIN 81MG EC TABLET PO SCH (08:50)
[2017-08-25] MEDS: FOLIC ACID 1MG TABLET PO SCH (08:50)
[2017-08-25] MEDS: CEFTRIAXONE 1 G PREMIX 50 ML IV SCH (11:04)
[2017-08-25] MEDS: HYDROCODONE/ACETAMINOPHEN 10/325MG TABLET PO PRN (14:22)
[2017-08-25 15:49] VITALS: BP 100/64
[2017-08-25 16:45] VITALS: BP 124/61
== END 2017-08-25 16:03 | disposition home or self-care (01) | DRG 139 ==
LOC: ER 20:30 → 7WST 22:15 → EDBEDREQ 22:18 → 7WST 08-22 03:02
PROVIDERS: ADMIT Internal Medicine; ATTEND Internal Medicine
DX: J18.9 Pneumonia, unspecified organism (principal); E43 Unspecified severe protein-calorie malnutrition; I50.23 Acute on chronic systolic (congestive) heart failure; M34.9 Systemic sclerosis, unspecified; I42.0 Dilated cardiomyopathy; L02.415 Cutaneous abscess of right lower limb; I13.0 Hypertensive heart and chronic kidney disease with heart failure and stage 1 through stage 4 chronic kidney disease, or unspecified chronic kidney disease; N18.9 Chronic kidney disease, unspecified; E87.6 Hypokalemia; M06.9 Rheumatoid arthritis, unspecified; D64.9 Anemia, unspecified; E78.5 Hyperlipidemia, unspecified; I25.10 Atherosclerotic heart disease of native coronary artery without angina pectoris; J45.909 Unspecified asthma, uncomplicated; K21.9 Gastro-esophageal reflux disease without esophagitis; Z82.49 Family history of ischemic heart disease and other diseases of the circulatory system; Z88.8 Allergy status to other drugs, medicaments and biological substances; Z95.810 Presence of automatic (implantable) cardiac defibrillator; Z79.82 Long term (current) use of aspirin; Z79.899 Other long term (current) drug therapy; Z68.1 Body mass index [BMI] 19.9 or less, adult
CPT/HCPCS: 36415; 71045; 80048; 80053; 81003; 81025; 82550; 82553; 83880; 84484; 84703; 85025; 85610; 93005; 94640; 96374; 96375; 99285; C1893; J0696; J1650; J1940; J2405; J7030; J7050; J7611; A4315

== ENCOUNTER 2017-10-25 22:14 | Emergency (ER) | payer OTHER ==
[~2017-10-25] VITALS: Ht 157.5 cm; Wt 43.0 kg
[~2017-10-25 22:14] MED LIST changes: -ALBU18HF2 INH; +ATOR10TA69 PO; -HYDR-3933 PO; +HYDR-4009 PO; -MEGE400O PO; -METH2.5T PO; -PRED5TAB48 PO; -SIMV10TA6 PO
[2017-10-25] MEDS ORDERED: SODIUM CHLORIDE 0.9% 1,000 ML IV ONE (23:37)
[2017-10-25] MEDS ORDERED: ONDANSETRON HCL 4MG/2ML VIAL IV STA (23:37)
[2017-10-25] MEDS ORDERED: MORPHINE SULFATE 4 MG/ML CPJ (NOT FOR IM USE) IV STA (23:37)
[2017-10-26 00:06] LABS: EOSINOPHILS % 5.2 % (0.0-5.0); HEMATOCRIT. 27.9 % (36.0-48.0); HEMOGLOBIN. 8.7 g/dL (12.0-16.0); MEAN CORPUSCULAR HEMOGLOBIN 23.1 pg (28.0-32.0); MEAN CORPUSCULAR VOLUME 74.4 fL (81.0-99.0); MEAN PLATELET VOLUME 7.2 fl (7.4-10.4); MONOCYTES % 5.3 % (2.0-8.0); NEUTROPHILS % 79.5 % (40.0-76.0); PLATELET 389 x1000/uL (130-400); RED BLOOD CELL COUNT 3.75 mill/uL (4.2-5.4); RED CELL DISTRIBUTION WIDTH 18.3 % (11.6-14.6)
[2017-10-26 00:12] LABS: CHLORIDE 106 mEq/L (98-107)
[2017-10-26 00:54] LABS: *AMPHETAMINES SCREEN URINE NEGATIVE (NEGATIVE); *BARBITURATES SCREEN URINE NEGATIVE (NEGATIVE); *BENZODIAZEPINES SCREEN URINE NEGATIVE (NEGATIVE)
[2017-10-26 00:55] LABS: *COCAINE SCREEN URINE NEGATIVE (NEGATIVE); CANNABINOID URINE SCREEN NEGATIVE (NEGATIVE); METHADONE URINE SCREEN NEGATIVE (NEGATIVE); OPIATES URINE SCREEN NEGATIVE (NEGATIVE); PHENCYCLIDINE URINE SCREEN NEGATIVE (NEGATIVE)
[2017-10-26 03:40] VITALS: BP 112/72
[2017-11-05] MEDS ORDERED: SPIR25TA6 PO (05:00)
[2017-11-05] MEDS ORDERED: METH2.5T PO (05:03)
[2017-12-07] MEDS ORDERED: GABA-531 MT (02:46)
[2017-12-07] MEDS ORDERED: ALBU2.5V13 NEB (02:46)
[2017-12-07] MEDS ORDERED: PRED-276 PO (02:46)
[2017-12-07] MEDS ORDERED: DICL75TA5 MT (02:46)
[2017-12-07] MEDS ORDERED: ISOS30TA6 MT (02:46)
[2017-12-07] MEDS ORDERED: PROM5SYR PO (02:46)
[2017-12-07] MEDS ORDERED: SIMV10TA6 MT (02:46)
== END 2017-10-26 03:45 | disposition home or self-care (01) ==
LOC: ER 22:14
DX: R07.89 Other chest pain (principal); R10.9 Unspecified abdominal pain; J45.909 Unspecified asthma, uncomplicated; K21.9 Gastro-esophageal reflux disease without esophagitis; I10 Essential (primary) hypertension; I42.8 Other cardiomyopathies; I73.00 Raynaud's syndrome without gangrene; Z95.0 Presence of cardiac pacemaker; Z88.8 Allergy status to other drugs, medicaments and biological substances; Z88.6 Allergy status to analgesic agent; Z79.82 Long term (current) use of aspirin; Z79.899 Other long term (current) drug therapy
CPT/HCPCS: 36415; 71045; 80053; 80305; 81025; 83880; 84484; 85025; 93005; 96374; 96375; 99285; J2270; J2405; J7030; Z7610; 96361

== ENCOUNTER 2018-01-05 15:45 | Emergency (ER) | payer OTHER ==
[~2018-01-05] VITALS: Ht 165.1 cm; Wt 50.0 kg
[~2018-01-05 15:45] MED LIST changes: +ALBU2.5V13 NEB; +DICL75TA5 MT; +GABA-531 MT; +ISOS30TA6 MT; +METH2.5T PO; -METO-293 PO; +PRED-276 PO; +PROM5SYR PO; +SIMV10TA6 MT; +SPIR25TA6 PO
[2018-01-05] MEDS ORDERED: ONDANSETRON HCL 4MG/2ML INJ IV STA (17:24)
[2018-01-05] MEDS ORDERED: MORPHINE SULFATE 4 MG/ML CPJ (NOT FOR IM USE) IV STA (17:24)
[2018-01-05] MEDS ORDERED: SODIUM CHLORIDE 0.9% 1,000 ML IV ONE (17:24)
[2018-01-05] MEDS ORDERED: FAMOTIDINE 20MG/2ML VIAL IV ONE (17:30)
[2018-01-05] MEDS ORDERED: MAGNESIUM/ALUMINUM HYDROXIDE/SIMETHICONE 30ML UDC PO ONE (17:30)
[2018-01-05 18:39] LABS: CLARITY URINE CLEAR (CLEAR); COLOR URINE YELLOW (YELLOW); KETONES URINE NEGATIVE (NEGATIVE); LEUKOCYTE ESTERASE URINE NEGATIVE (NEGATIVE); NITRITE URINE NEGATIVE (NEGATIVE); OCCULT BLOOD URINE NEGATIVE (NEGATIVE); PH URINE 5.5 (4.5-8.0); PROTEIN URINE NEGATIVE (NEGATIVE); SPECIFIC GRAVITY URINE 1.012 (1.005-1.030); UROBILINOGEN URINE 0.2 E.U./dL (0.2-1.0)
[2018-01-05 19:14] LABS: BASOPHILS % 2.4 % (0.0-2.0); EOSINOPHILS % 3.8 % (0.0-5.0); HEMATOCRIT. 34.7 % (36.0-48.0); LYMPHOCYTES % 14.6 % (20.0-50.0); MEAN CORPUSCULAR HEMOGLOBIN 26.2 pg (28.0-32.0); MEAN PLATELET VOLUME 8.6 fl (7.4-10.4); MONOCYTES % 1.5 % (2.0-8.0); NEUTROPHILS % 77.7 % (40.0-76.0); PLATELET 149 x1000/uL (130-400); RED BLOOD CELL COUNT 4.18 mill/uL (4.2-5.4); RED CELL DISTRIBUTION WIDTH 24.5 % (11.6-14.6)
[2018-01-05 19:17] LABS: CHLORIDE 103 mEq/L (98-107)
[2018-01-05 19:21] LABS: HCG SCREEN NEGATIVE
[2018-01-05 19:34] LABS: PLATELET ESTIMATE NORMAL
[2018-01-06 00:17] VITALS: BP 124/68
== END 2018-01-06 00:21 | disposition home or self-care (01) ==
LOC: ER 16:20
DX: R19.7 Diarrhea, unspecified (principal); R11.0 Nausea; R53.1 Weakness; E86.0 Dehydration; Z95.0 Presence of cardiac pacemaker; Z98.890 Other specified postprocedural states; Z79.899 Other long term (current) drug therapy; Z88.5 Allergy status to narcotic agent
CPT/HCPCS: 36415; 71045; 74018; 80053; 81003; 83690; 83880; 84484; 84703; 85025; 85379; 93005; 96361; 96374; 96375; 99285; J2270; J2405; J3490; J7030; Z7610

== ENCOUNTER 2018-01-09 16:17 | Inpatient (IN) | payer OTHER ==
[~2018-01-09] VITALS: Ht 157.5 cm; Wt 44.5 kg
[2018-01-09 18:51] LABS: CLARITY URINE CLEAR (CLEAR); COLOR URINE YELLOW (YELLOW); KETONES URINE NEGATIVE (NEGATIVE); LEUKOCYTE ESTERASE URINE NEGATIVE (NEGATIVE); NITRITE URINE NEGATIVE (NEGATIVE); OCCULT BLOOD URINE NEGATIVE (NEGATIVE); PROTEIN URINE NEGATIVE (NEGATIVE); SPECIFIC GRAVITY URINE 1.011 (1.005-1.030); UROBILINOGEN URINE 0.2 E.U./dL (0.2-1.0)
[2018-01-09 19:28] LABS: BASOPHILS % 0.8 % (0.0-2.0); EOSINOPHILS % 6.1 % (0.0-5.0); HEMATOCRIT. 35.7 % (36.0-48.0); HEMOGLOBIN. 11.3 g/dL (12.0-16.0); LYMPHOCYTES % 17.1 % (20.0-50.0); MEAN CORPUSCULAR HEMOGLOBIN 26.5 pg (28.0-32.0); MEAN CORPUSCULAR VOLUME 83.6 fL (81.0-99.0); MEAN PLATELET VOLUME 8.8 fl (7.4-10.4); MONOCYTES % 5.7 % (2.0-8.0); NEUTROPHILS % 70.3 % (40.0-76.0); PLATELET 72 x1000/uL (130-400); RED BLOOD CELL COUNT 4.27 mill/uL (4.2-5.4)
[2018-01-09 19:31] LABS: CHLORIDE 98 mEq/L (98-107)
[2018-01-09 19:33] LABS: PROTHROMBIN TIME 10.2 sec (9.1-11.1)
[2018-01-09 20:01] LABS: PLATELET ESTIMATE DECREASED
[2018-01-09] MEDS ORDERED: IPRATROPIUM/ALBUTEROL 0.5-3(2.5)MG/3ML NEB INH PRN (22:15)
[2018-01-09] MEDS ORDERED: NA PHOS,M-B/NA PHOS,DI-BA ENEMA 118ML PR PRN (22:15)
[2018-01-09] MEDS ORDERED: ENOXAPARIN 40MG/0.4ML SYR SUBCUT SCH (22:15)
[2018-01-09] MEDS ORDERED: LORAZEPAM 2MG/ML CPJ IV PRN (22:15)
[2018-01-09] MEDS ORDERED: ACETAMINOPHEN 325MG TABLET PO PRN (22:15)
[2018-01-09] MEDS ORDERED: ONDANSETRON HCL 4MG/2ML INJ IV PRN (22:15)
[2018-01-09] MEDS ORDERED: MAGNESIUM/ALUMINUM HYDROXIDE/SIMETHICONE 30ML UDC PO PRN (22:15)
[2018-01-09] MEDS ORDERED: HYDROCODONE/ACETAMINOPHEN 10/325MG TABLET PO PRN (22:15)
[2018-01-09] MEDS ORDERED: GUAIFENESIN 200MG/10ML SUGAR FREE UDC PO PRN (22:15)
[2018-01-09] MEDS ORDERED: CLONIDINE 0.1MG TABLET PO PRN (22:15)
[2018-01-09] MEDS ORDERED: DOCUSATE SODIUM 100MG CAPSULE PO PRN (22:15)
[2018-01-09] MEDS: MORPHINE SULFATE 4 MG/ML CPJ (NOT FOR IM USE) IV PRN (22:59)
[2018-01-09 23:46] VITALS: BP 113/75
[2018-01-10] VITALS: BP 113/75
[2018-01-10] MEDS: DEXT 5%/0.45% NACL 1000ML 1,000 ML IV SCH ×2 (01:31→14:35)
[2018-01-10 04:00] VITALS: BP 95/62
[2018-01-10] MEDS: MORPHINE SULFATE 4 MG/ML CPJ (NOT FOR IM USE) IV PRN ×4 (04:12→22:16)
[2018-01-10 06:27] LABS: BASOPHILS % 0.9 % (0.0-2.0); EOSINOPHILS % 7.2 % (0.0-5.0); HEMATOCRIT. 32.8 % (36.0-48.0); HEMOGLOBIN. 10.7 g/dL (12.0-16.0); LYMPHOCYTES % 20.7 % (20.0-50.0); MEAN CORPUSCULAR HEMOGLOBIN 27.5 pg (28.0-32.0); MEAN CORPUSCULAR VOLUME 83.8 fL (81.0-99.0); MEAN PLATELET VOLUME 9.4 fl (7.4-10.4); MONOCYTES % 6.6 % (2.0-8.0); NEUTROPHILS % 64.6 % (40.0-76.0); PLATELET 69 x1000/uL (130-400); RED BLOOD CELL COUNT 3.91 mill/uL (4.2-5.4)
[2018-01-10 06:47] LABS: CHLORIDE 99 mEq/L (98-107)
[2018-01-10 07:00] LABS: LDL CHOLESTEROL 53 mg/dL (5-100)
[2018-01-10 07:02] LABS: HDL CHOLESTEROL 22 mg/dL (40-59); T4 FREE 1.12 ng/dL (0.76-1.46)
[2018-01-10 08:00] VITALS: BP 90/60
[2018-01-10 12:00] VITALS: BP 95/62
[2018-01-10] MEDS ORDERED: LORAZEPAM 1MG TABLET PO PRN (12:00)
[2018-01-10 16:00] VITALS: BP 109/67
[2018-01-10 20:00] VITALS: BP 113/71
[2018-01-11] VITALS: BP 101/62
[2018-01-11] MEDS: MORPHINE SULFATE 4 MG/ML CPJ (NOT FOR IM USE) IV PRN ×2 (03:46→09:59)
[2018-01-11] MEDS: DEXT 5%/0.45% NACL 1000ML 1,000 ML IV SCH (03:46)
[2018-01-11 04:00] VITALS: BP 110/70
[2018-01-11 07:11] LABS: CHLORIDE 101 mEq/L (98-107)
[2018-01-11 07:17] LABS: BASOPHILS % 0.5 % (0.0-2.0); EOSINOPHILS % 3.4 % (0.0-5.0); HEMATOCRIT. 33.8 % (36.0-48.0); HEMOGLOBIN. 10.6 g/dL (12.0-16.0); LYMPHOCYTES % 12.2 % (20.0-50.0); MEAN CORPUSCULAR HEMOGLOBIN 26.3 pg (28.0-32.0); MEAN PLATELET VOLUME 8.9 fl (7.4-10.4); NEUTROPHILS % 78.9 % (40.0-76.0); PLATELET 73 x1000/uL (130-400); RED BLOOD CELL COUNT 4.02 mill/uL (4.2-5.4); RED CELL DISTRIBUTION WIDTH 24.2 % (11.6-14.6)
[2018-01-11 08:00] VITALS: BP 95/59
[2018-01-11 09:00] VITALS: BP 102/64
[2018-01-11 12:00] VITALS: BP 92/59
[2018-01-11 13:02] VITALS: BP 105/62
[2018-01-22] MEDS ORDERED: METH2.5T MT (23:28)
== END 2018-01-11 14:05 | disposition home or self-care (01) | DRG 247 ==
LOC: ER 16:17 → 6EST 21:52 → EDBEDREQ 21:59 → EDBEDREQTM 21:59 → ENRESERV 22:06
PROVIDERS: ADMIT Internal Medicine; ATTEND Internal Medicine
DX: K56.699 Other intestinal obstruction unspecified as to partial versus complete obstruction (principal); N17.0 Acute kidney failure with tubular necrosis; E43 Unspecified severe protein-calorie malnutrition; J84.9 Interstitial pulmonary disease, unspecified; I42.9 Cardiomyopathy, unspecified; M34.1 CR(E)ST syndrome; E87.6 Hypokalemia; K59.00 Constipation, unspecified; E86.0 Dehydration; D64.9 Anemia, unspecified; I12.9 Hypertensive chronic kidney disease with stage 1 through stage 4 chronic kidney disease, or unspecified chronic kidney disease; J45.909 Unspecified asthma, uncomplicated; K21.9 Gastro-esophageal reflux disease without esophagitis; M79.7 Fibromyalgia; N18.9 Chronic kidney disease, unspecified; Z79.52 Long term (current) use of systemic steroids; Z79.82 Long term (current) use of aspirin; Z82.49 Family history of ischemic heart disease and other diseases of the circulatory system; Z95.810 Presence of automatic (implantable) cardiac defibrillator; Z98.82 Breast implant status; Z68.1 Body mass index [BMI] 19.9 or less, adult; Z88.8 Allergy status to other drugs, medicaments and biological substances; Z79.51 Long term (current) use of inhaled steroids; Z79.899 Other long term (current) drug therapy
CPT/HCPCS: 36415; 71045; 74018; 74176; 80048; 80053; 80061; 81003; 81025; 83690; 83880; 84439; 84443; 84484; 85025; 85610; 93005; 96374; 99285; C1893; J2060; J2270; J2405

== ENCOUNTER 2018-01-13 11:56 | Inpatient (IN) | payer OTHER ==
[~2018-01-13] VITALS: Ht 157.5 cm; Wt 45.0 kg
[~2018-01-13 11:56] MED LIST changes: -BISA10SU62 RC; -FERR325T6 PO; -PROM5SYR PO
[2018-01-13] MEDS ORDERED: ONDANSETRON HCL 4MG/2ML INJ IV STA (15:08)
[2018-01-13] MEDS ORDERED: SODIUM CHLORIDE 0.9% 500 ML IV ONE (15:15)
[2018-01-13 15:55] LABS: BASOPHILS % 0.3 % (0.0-2.0); EOSINOPHILS % 4.4 % (0.0-5.0); HEMOGLOBIN. 10.4 g/dL (12.0-16.0); MEAN CORPUSCULAR HEMOGLOBIN 26.6 pg (28.0-32.0); MEAN CORPUSCULAR VOLUME 84.4 fL (81.0-99.0); MONOCYTES % 5.4 % (2.0-8.0); NEUTROPHILS % 81.9 % (40.0-76.0); RED BLOOD CELL COUNT 3.91 mill/uL (4.2-5.4); RED CELL DISTRIBUTION WIDTH 24.1 % (11.6-14.6)
[2018-01-13 15:58] LABS: CHLORIDE 107 mEq/L (98-107)
[2018-01-13] MEDS ORDERED: FENTANYL CITRATE/PF 50MCG/ML 2ML VIAL IV ONE (16:30)
[2018-01-13 16:58] LABS: CLARITY URINE CLEAR (CLEAR); COLOR URINE YELLOW (YELLOW); KETONES URINE NEGATIVE (NEGATIVE); LEUKOCYTE ESTERASE URINE NEGATIVE (NEGATIVE); NITRITE URINE NEGATIVE (NEGATIVE); OCCULT BLOOD URINE NEGATIVE (NEGATIVE); PROTEIN URINE 1+ (NEGATIVE); SPECIFIC GRAVITY URINE 1.021 (1.005-1.030); UROBILINOGEN URINE 0.2 E.U./dL (0.2-1.0)
[2018-01-13 17:32] LABS: *AMPHETAMINES SCREEN URINE NEGATIVE (NEGATIVE); *BARBITURATES SCREEN URINE NEGATIVE (NEGATIVE); *BENZODIAZEPINES SCREEN URINE NEGATIVE (NEGATIVE)
[2018-01-13 17:33] LABS: *COCAINE SCREEN URINE NEGATIVE (NEGATIVE); CANNABINOID URINE SCREEN NEGATIVE (NEGATIVE); METHADONE URINE SCREEN NEGATIVE (NEGATIVE); PHENCYCLIDINE URINE SCREEN NEGATIVE (NEGATIVE)
[2018-01-13 17:46] LABS: OPIATES URINE SCREEN PRESUMTIVE POSITIVE (NEGATIVE)
[2018-01-13 22:24] VITALS: BP 128/82
[2018-01-13] MEDS: MORPHINE SULFATE 4 MG/ML CPJ (NOT FOR IM USE) IV PRN (23:37)
[2018-01-14] MEDS ORDERED: IPRA3AMP31 NEB (00:45)
[2018-01-14] MEDS ORDERED: PROM5SYR MT (00:58)
[2018-01-14] MEDS ORDERED: LORAZEPAM 1MG TABLET PO PRN ×2 (01:15→10:30)
[2018-01-14] MEDS ORDERED: SODIUM CHLORIDE 0.9% 1,000 ML IV SCH (02:00)
[2018-01-14 03:09] LABS: CHLORIDE 110 mEq/L (98-107)
[2018-01-14 03:43] LABS: EOSINOPHILS % 7.3 % (0.0-5.0); HEMATOCRIT. 29.1 % (36.0-48.0); HEMOGLOBIN. 9.4 g/dL (12.0-16.0); LYMPHOCYTES % 11.9 % (20.0-50.0); MEAN CORPUSCULAR HEMOGLOBIN 27.4 pg (28.0-32.0); MEAN CORPUSCULAR VOLUME 84.6 fL (81.0-99.0); MEAN PLATELET VOLUME 8.6 fl (7.4-10.4); MONOCYTES % 6.2 % (2.0-8.0); NEUTROPHILS % 73.6 % (40.0-76.0); PLATELET 117 x1000/uL (130-400); RED BLOOD CELL COUNT 3.43 mill/uL (4.2-5.4); RED CELL DISTRIBUTION WIDTH 23.7 % (11.6-14.6)
[2018-01-14 04:00] VITALS: BP 89/55
[2018-01-14 08:00] VITALS: BP 87/45
[2018-01-14] MEDS ORDERED: IPRATROPIUM/ALBUTEROL 0.5-3(2.5)MG/3ML NEB NEB PRN (10:30)
[2018-01-14] MEDS ORDERED: FUROSEMIDE 20MG TABLET PO SCH (11:35)
[2018-01-14] MEDS ORDERED: SPIRONOLACTONE 25MG TABLET PO SCH (11:35)
[2018-01-14] MEDS ORDERED: DIGOXIN 250MCG TABLET PO SCH (11:35)
[2018-01-14] MEDS ORDERED: LISINOPRIL 10MG TABLET PO SCH (11:40)
[2018-01-14] MEDS ORDERED: PANTOPRAZOLE SODIUM 40 MG/VIAL IV SCH (11:45)
[2018-01-14] MEDS ORDERED: ENOXAPARIN 40MG/0.4ML SYR SUBCUT SCH (11:55)
[2018-01-14 12:00] VITALS: BP 113/76
[2018-01-14] MEDS: MORPHINE SULFATE 4 MG/ML CPJ (NOT FOR IM USE) IV PRN ×2 (13:28→18:12)
[2018-01-14] MEDS ORDERED: ISOSORBIDE MONONITRATE 30MG TABLET SR 24HR PO SCH (13:30)
[2018-01-14] MEDS ORDERED: GABAPENTIN 300MG CAPSULE PO SCH (14:00)
[2018-01-14 16:00] VITALS: BP 113/72
[2018-01-14] MEDS ORDERED: CARVEDILOL 6.25 MG TABLET PO SCH (17:00)
[2018-01-14 18:40] VITALS: BP 105/70
[2018-01-15] MEDS ORDERED: ATORVASTATIN CALCIUM 10MG TABLET PO SCH (09:00)
[2018-01-15] MEDS ORDERED: PREDNISONE 5MG TABLET PO SCH (09:00)
[2018-01-15] MEDS ORDERED: ISOSORBIDE MONONITRATE 60MG TABLET SR 24HR PO SCH (09:00)
[2018-01-15] MEDS ORDERED: ALLOPURINOL 100 MG TABLET PO SCH (09:00)
[2018-01-15] MEDS ORDERED: ASPIRIN 81MG EC TABLET PO SCH (09:00)
[2018-01-16] MEDS ORDERED: METHOTREXATE SODIUM 2 . 5MG TABLET PO SCH (09:00)
[2018-01-22] MEDS ORDERED: METH2.5T MT (23:28)
== END 2018-01-14 19:20 | disposition home or self-care (01) | DRG 247 ==
LOC: ER 13:51 → 6WST 18:00 → ENRESERV 20:54
PROVIDERS: ADMIT Internal Medicine; ATTEND Internal Medicine
DX: K56.7 Ileus, unspecified (principal); J84.9 Interstitial pulmonary disease, unspecified; E87.0 Hyperosmolality and hypernatremia; I13.0 Hypertensive heart and chronic kidney disease with heart failure and stage 1 through stage 4 chronic kidney disease, or unspecified chronic kidney disease; I95.9 Hypotension, unspecified; E44.1 Mild protein-calorie malnutrition; I42.0 Dilated cardiomyopathy; I50.42 Chronic combined systolic (congestive) and diastolic (congestive) heart failure; M34.9 Systemic sclerosis, unspecified; R79.89 Other specified abnormal findings of blood chemistry; M06.9 Rheumatoid arthritis, unspecified; D64.9 Anemia, unspecified; J45.909 Unspecified asthma, uncomplicated; M79.7 Fibromyalgia; N18.9 Chronic kidney disease, unspecified; K21.9 Gastro-esophageal reflux disease without esophagitis; Z95.810 Presence of automatic (implantable) cardiac defibrillator; Z82.49 Family history of ischemic heart disease and other diseases of the circulatory system; Z88.6 Allergy status to analgesic agent; Z79.899 Other long term (current) drug therapy; Z79.82 Long term (current) use of aspirin; Z79.52 Long term (current) use of systemic steroids; Z68.1 Body mass index [BMI] 19.9 or less, adult
CPT/HCPCS: 36415; 74022; 80305; 83880; 93005; 96361; 96374; 96375; 99285; C9113; J2270; J2405; J3010; J7030; J7040

== ENCOUNTER 2018-01-28 18:39 | Inpatient (IN) | payer OTHER ==
[~2018-01-28] VITALS: Ht 157.5 cm; Wt 44.5 kg
[~2018-01-28 18:39] MED LIST changes: -ATOR10TA69 PO; +IPRA3AMP31 NEB; +METH2.5T MT; -METH2.5T PO; +PROM5SYR MT
[2018-01-28] MEDS ORDERED: MORPHINE SULFATE 4 MG/ML CPJ (NOT FOR IM USE) IV STA (21:06)
[2018-01-28] MEDS ORDERED: SODIUM CHLORIDE 0.9% 1,000 ML IV ONE (21:06)
[2018-01-28] MEDS ORDERED: ONDANSETRON HCL 4MG/2ML INJ IV STA (21:06)
[2018-01-28 23:09] LABS: BASOPHILS % 0.3 % (0.0-2.0); EOSINOPHILS % 3.3 % (0.0-5.0); HEMATOCRIT. 29.7 % (36.0-48.0); HEMOGLOBIN. 9.6 g/dL (12.0-16.0); LYMPHOCYTES % 14.9 % (20.0-50.0); MEAN CORPUSCULAR HEMOGLOBIN 27.6 pg (28.0-32.0); MEAN CORPUSCULAR VOLUME 85.3 fL (81.0-99.0); MEAN PLATELET VOLUME 8.2 fl (7.4-10.4); MONOCYTES % 5.4 % (2.0-8.0); NEUTROPHILS % 76.1 % (40.0-76.0); PLATELET 150 x1000/uL (130-400); RED BLOOD CELL COUNT 3.47 mill/uL (4.2-5.4); RED CELL DISTRIBUTION WIDTH 23.1 % (11.6-14.6)
[2018-01-28 23:15] LABS: CHLORIDE 109 mEq/L (98-107); D-DIMER 1.65 mg/L FEU (<0.50); PROTHROMBIN TIME 10.5 sec (9.1-11.1)
[2018-01-29] MEDS ORDERED: FUROSEMIDE 20MG/2ML VIAL IVP NR (01:15)
[2018-01-29 01:16] LABS: PLATELET ESTIMATE NORMAL
[2018-01-29] MEDS ORDERED: ENOXAPARIN 40MG/0.4ML SYR SUBCUT ONE (01:30)
[2018-01-29] MEDS ORDERED: IOHEXOL-350 100 ML BOTTLE ONE (02:51)
[2018-01-29] MEDS ORDERED: ONDANSETRON HCL 4MG/2ML INJ IV PRN (10:00)
[2018-01-29] MEDS ORDERED: IPRATROPIUM/ALBUTEROL 0.5-3(2.5)MG/3ML NEB HHN PRN (10:00)
[2018-01-29] MEDS ORDERED: HYDROCODONE/ACETAMINOPHEN 5/325MG TABLET PO PRN (10:00)
[2018-01-29] MEDS: MORPHINE SULFATE 4 MG/ML CPJ (NOT FOR IM USE) IV PRN ×3 (11:08→20:08)
[2018-01-29 15:05] VITALS: BP 110/69
[2018-01-29 16:00] VITALS: BP 110/59
[2018-01-29] MEDS ORDERED: LEVOFLOXACIN 500MG TABLET PO SCH (16:30)
[2018-01-29] MEDS: FUROSEMIDE 100MG/10ML VIAL IVP SCH (19:02)
[2018-01-29] MEDS: CARVEDILOL 6.25 MG TABLET PO SCH (19:03)
[2018-01-29 20:00] VITALS: BP 103/69
[2018-01-29] MEDS: GUAIFENESIN 600MG ER TABLET PO SCH (20:41)
[2018-01-30] VITALS: BP 96/59
[2018-01-30 04:00] VITALS: BP 90/50
[2018-01-30] MEDS: PANTOPRAZOLE 40MG DR TABLET PO SCH (06:20)
[2018-01-30 06:44] LABS: HEMATOCRIT 29.4 % (36.0-48.0); HEMOGLOBIN 9.4 g/dL (12.0-16.0); MEAN CORPUSCULAR HEMOGLOBIN 27.2 pg (28.0-32.0); MEAN CORPUSCULAR VOLUME 84.8 fL (81.0-99.0); PLATELET 164 x1000/uL (130-400); RED BLOOD CELL COUNT 3.47 mill/uL (4.2-5.4); RED CELL DISTRIBUTION WIDTH 23.2 % (11.6-14.6)
[2018-01-30] MEDS: FUROSEMIDE 100MG/10ML VIAL IVP SCH (07:15)
[2018-01-30 08:00] VITALS: BP 92/57
[2018-01-30] MEDS: CARVEDILOL 6.25 MG TABLET PO SCH ×2 (09:00→16:57)
[2018-01-30] MEDS: POTASSIUM CHLORIDE 20MEQ TABLET SR PO SCH (10:13)
[2018-01-30] MEDS: PREDNISONE 5MG TABLET PO SCH (10:13)
[2018-01-30] MEDS: ASPIRIN 81MG TABLET PO SCH (10:13)
[2018-01-30] MEDS: GUAIFENESIN 600MG ER TABLET PO SCH ×2 (10:13→21:08)
[2018-01-30 12:00] VITALS: BP 86/56
[2018-01-30] MEDS: MORPHINE SULFATE 4 MG/ML CPJ (NOT FOR IM USE) IV PRN ×3 (12:25→23:57)
[2018-01-30 16:00] VITALS: BP 101/61
[2018-01-30] MEDS ORDERED: METRONIDAZOLE 500MG TABLET PO SCH (16:00)
[2018-01-30] MEDS ORDERED: FUROSEMIDE 40MG/4ML VIAL IV SCH (17:15)
[2018-01-30 20:00] VITALS: BP 100/60
[2018-01-31] VITALS: BP 114/87
[2018-01-31 04:00] VITALS: BP 93/59
[2018-01-31] MEDS: PANTOPRAZOLE 40MG DR TABLET PO SCH (06:06)
[2018-01-31] MEDS: MORPHINE SULFATE 4 MG/ML CPJ (NOT FOR IM USE) IV PRN ×4 (06:07→20:48)
[2018-01-31 06:28] LABS: HEMATOCRIT 27.1 % (36.0-48.0); HEMOGLOBIN 8.9 g/dL (12.0-16.0); MEAN CORPUSCULAR HEMOGLOBIN 27.6 pg (28.0-32.0); MEAN CORPUSCULAR VOLUME 84.4 fL (81.0-99.0); PLATELET 210 x1000/uL (130-400)
[2018-01-31 08:00] VITALS: BP 97/56
[2018-01-31] MEDS: FUROSEMIDE 40MG/4ML VIAL IVP SCH (08:56)
[2018-01-31] MEDS: POTASSIUM CHLORIDE 20MEQ TABLET SR PO SCH (08:56)
[2018-01-31] MEDS: CARVEDILOL 6.25 MG TABLET PO SCH ×2 (08:56→17:41)
[2018-01-31] MEDS: ASPIRIN 81MG TABLET PO SCH (08:56)
[2018-01-31] MEDS: PREDNISONE 5MG TABLET PO SCH (08:56)
[2018-01-31] MEDS: GUAIFENESIN 600MG ER TABLET PO SCH ×2 (08:56→21:41)
[2018-01-31] MEDS ORDERED: METHOTREXATE SODIUM 2 . 5MG TABLET PO SCH (09:00)
[2018-01-31 10:40] LABS: CLARITY URINE CLEAR (CLEAR); COLOR URINE YELLOW (YELLOW); KETONES URINE NEGATIVE (NEGATIVE); LEUKOCYTE ESTERASE URINE NEGATIVE (NEGATIVE); NITRITE URINE NEGATIVE (NEGATIVE); OCCULT BLOOD URINE NEGATIVE (NEGATIVE); PROTEIN URINE 1+ (NEGATIVE); SPECIFIC GRAVITY URINE 1.024 (1.005-1.030); UROBILINOGEN URINE 0.2 E.U./dL (0.2-1.0)
[2018-01-31 10:54] LABS: CANNABINOID URINE SCREEN NEGATIVE (NEGATIVE); PHENCYCLIDINE URINE SCREEN NEGATIVE (NEGATIVE)
[2018-01-31 11:00] LABS: *AMPHETAMINES SCREEN URINE NEGATIVE (NEGATIVE); *BARBITURATES SCREEN URINE NEGATIVE (NEGATIVE); *BENZODIAZEPINES SCREEN URINE NEGATIVE (NEGATIVE); *COCAINE SCREEN URINE NEGATIVE (NEGATIVE); METHADONE URINE SCREEN NEGATIVE (NEGATIVE)
[2018-01-31 11:07] LABS: OPIATES URINE SCREEN PRESUMTIVE POSITIVE (NEGATIVE)
[2018-01-31 12:00] VITALS: BP 90/57
[2018-01-31 16:00] VITALS: BP 96/58
[2018-01-31 20:00] VITALS: BP 100/63
[2018-01-31] MEDS: DICLOFENAC SODIUM 75MG DR (EC) TABLET PO SCH (20:47)
[2018-02-01] VITALS: BP 130/78
[2018-02-01] MEDS: MORPHINE SULFATE 4 MG/ML CPJ (NOT FOR IM USE) IV PRN ×2 (00:51→13:27)
[2018-02-01 04:00] VITALS: BP 91/56
[2018-02-01] MEDS: PANTOPRAZOLE 40MG DR TABLET PO SCH ×2 (06:07→09:56)
[2018-02-01 07:14] LABS: BASOPHILS % 0.6 % (0.0-2.0); EOSINOPHILS % 8.3 % (0.0-5.0); HEMATOCRIT. 27.6 % (36.0-48.0); HEMOGLOBIN. 8.8 g/dL (12.0-16.0); LYMPHOCYTES % 19.6 % (20.0-50.0); MEAN CORPUSCULAR HEMOGLOBIN 26.9 pg (28.0-32.0); MEAN CORPUSCULAR VOLUME 84.6 fL (81.0-99.0); MEAN PLATELET VOLUME 8.2 fl (7.4-10.4); MONOCYTES % 7.8 % (2.0-8.0); NEUTROPHILS % 63.7 % (40.0-76.0); PLATELET 225 x1000/uL (130-400); RED BLOOD CELL COUNT 3.26 mill/uL (4.2-5.4); RED CELL DISTRIBUTION WIDTH 22.5 % (11.6-14.6)
[2018-02-01 08:00] VITALS: BP 91/60
[2018-02-01] MEDS: DICLOFENAC SODIUM 75MG DR (EC) TABLET PO SCH (09:00)
[2018-02-01] MEDS ORDERED: PREDNISONE 5MG TABLET PO SCH (09:00)
[2018-02-01] MEDS: GUAIFENESIN 600MG ER TABLET PO SCH (09:57)
[2018-02-01] MEDS: POTASSIUM CHLORIDE 20MEQ TABLET SR PO SCH (09:57)
[2018-02-01] MEDS: ASPIRIN 81MG TABLET PO SCH (09:57)
[2018-02-01] MEDS: CARVEDILOL 6.25 MG TABLET PO SCH (09:57)
[2018-02-01] MEDS: FUROSEMIDE 40MG/4ML VIAL IVP SCH (10:00)
[2018-02-01 12:08] VITALS: BP 96/58
[2018-02-01 13:48] VITALS: BP 101/65
[2018-02-04 09:05] LABS: ANGIOTENSION CONVERTING ENZYME 36 U/L (14-82); ANTI-CENTROMERE B ANTIBODIES < 0.2 AI (0.0-0.9)
[2018-02-05 09:06] LABS: ANTI-CARDIOLIPIN AB IGG < 9 GPL U/mL (0-14); ANTI-CARDIOLIPIN AB IGM < 9 MPL U/mL (0-12); GLOMERULAR BASEMENT MEMB AB 4 units (0-20)
[2018-02-06 14:18] LABS: HLA B27 DISEASE ASSOCIATION Negative (.)
[2018-02-12 19:09] LABS: ANA IFA Negative (.); ANTI-CARDIOLIPIN AB IGA < 9 APL U/mL (0-11)
== END 2018-02-01 16:00 | disposition home or self-care (01) | DRG 133 ==
LOC: ER 19:14 → 5WST 01-29 01:21 → EDBEDREQ 01-29 01:23 → EDBEDREQTM 01-29 01:23 → ENRESERV 01-29 13:39
PROVIDERS: ADMIT Internal Medicine; ATTEND Internal Medicine
DX: J96.00 Acute respiratory failure, unspecified whether with hypoxia or hypercapnia (principal); E43 Unspecified severe protein-calorie malnutrition; I50.23 Acute on chronic systolic (congestive) heart failure; N17.9 Acute kidney failure, unspecified; J84.9 Interstitial pulmonary disease, unspecified; E87.8 Other disorders of electrolyte and fluid balance, not elsewhere classified; K56.7 Ileus, unspecified; I13.0 Hypertensive heart and chronic kidney disease with heart failure and stage 1 through stage 4 chronic kidney disease, or unspecified chronic kidney disease; M33.90 Dermatopolymyositis, unspecified, organ involvement unspecified; M02.30 Reiter's disease, unspecified site; M34.1 CR(E)ST syndrome; K21.9 Gastro-esophageal reflux disease without esophagitis; D64.9 Anemia, unspecified; E78.5 Hyperlipidemia, unspecified; M19.90 Unspecified osteoarthritis, unspecified site; J45.909 Unspecified asthma, uncomplicated; N18.9 Chronic kidney disease, unspecified; M06.9 Rheumatoid arthritis, unspecified; R07.9 Chest pain, unspecified; M34.9 Systemic sclerosis, unspecified; Z95.810 Presence of automatic (implantable) cardiac defibrillator; Z98.82 Breast implant status; Z99.3 Dependence on wheelchair; Z87.19 Personal history of other diseases of the digestive system; Z83.3 Family history of diabetes mellitus; Z82.49 Family history of ischemic heart disease and other diseases of the circulatory system; Z82.3 Family history of stroke; Z88.8 Allergy status to other drugs, medicaments and biological substances; Z79.899 Other long term (current) drug therapy; Z79.82 Long term (current) use of aspirin; Z68.1 Body mass index [BMI] 19.9 or less, adult; Z86.11 Personal history of tuberculosis; Z79.52 Long term (current) use of systemic steroids
CPT/HCPCS: 36415; 71045; 71275; 74018; 80048; 80305; 81025; 82085; 82164; 82550; 83880; 84145; 84484; 84550; 85027; 85379; 85651; 86147; 86235; 86256; 86431; 86671; 93005; 96361; 96374; 96375; 96376; 99285; C1893; J1940; J2270; J2405; J7030; J7512; J8610; Q9967

== ENCOUNTER 2018-03-17 22:10 | Emergency (ER) | payer OTHER ==
[~2018-03-17] VITALS: Ht 157.5 cm; Wt 43.0 kg
[~2018-03-17 22:10] MED LIST changes: -HYDR-4009 PO; -METH2.5T MT; -PRED-276 PO
[2018-03-17] MEDS ORDERED: MORPHINE SULFATE 4 MG/ML CPJ (NOT FOR IM USE) IV ONE (23:00)
[2018-03-17] MEDS ORDERED: SODIUM CHLORIDE 0.9% 1,000 ML IV ONE (23:00)
[2018-03-17 23:54] LABS: BASOPHILS % 0.5 % (0.0-2.0); EOSINOPHILS % 1.8 % (0.0-5.0); HEMATOCRIT. 37.7 % (36.0-48.0); HEMOGLOBIN. 11.8 g/dL (12.0-16.0); LYMPHOCYTES % 10.6 % (20.0-50.0); MEAN CORPUSCULAR HEMOGLOBIN 25.5 pg (28.0-32.0); MEAN CORPUSCULAR VOLUME 81.7 fL (81.0-99.0); MEAN PLATELET VOLUME 8.4 fl (7.4-10.4); MONOCYTES % 4.2 % (2.0-8.0); NEUTROPHILS % 82.9 % (40.0-76.0); PLATELET 279 x1000/uL (130-400); RED BLOOD CELL COUNT 4.62 mill/uL (4.2-5.4); RED CELL DISTRIBUTION WIDTH 17.3 % (11.6-14.6)
[2018-03-17 23:57] LABS: PROTHROMBIN TIME 10.2 sec (9.1-11.1)
[2018-03-17 23:58] LABS: CHLORIDE 101 mEq/L (98-107)
[2018-03-18] MEDS ORDERED: FENTANYL CITRATE/PF 50MCG/ML 2ML VIAL IV ONE (00:30)
[2018-03-18] MEDS ORDERED: LEVOFLOXACIN 500MG PREMIX 100 ML IV ONE (01:00)
[2018-03-18] MEDS ORDERED: FUROSEMIDE 20MG/2ML VIAL IVP ONE (01:00)
[2018-03-18] MEDS ORDERED: PIPERACILLIN/TAZOBACTAM 3.375GM/50ML PREMIX IV ONE (01:00)
[2018-03-18 02:42] LABS: METHADONE URINE SCREEN NEGATIVE (NEGATIVE); OPIATES URINE SCREEN NEGATIVE (NEGATIVE); PHENCYCLIDINE URINE SCREEN NEGATIVE (NEGATIVE)
[2018-03-18 02:43] LABS: *AMPHETAMINES SCREEN URINE NEGATIVE (NEGATIVE); *BARBITURATES SCREEN URINE NEGATIVE (NEGATIVE); *BENZODIAZEPINES SCREEN URINE NEGATIVE (NEGATIVE); *COCAINE SCREEN URINE NEGATIVE (NEGATIVE); CANNABINOID URINE SCREEN NEGATIVE (NEGATIVE)
[2018-03-18 03:22] LABS: HCG SCREEN NEGATIVE
[2018-03-18] MEDS ORDERED: SODIUM CHLORIDE 0.9% 1,000 ML IV ONE (04:15)
[2018-03-18] MEDS ORDERED: LORAZEPAM 0.5MG TABLET PO ONE (04:15)
[2018-03-18] MEDS ORDERED: HYDROCODONE/ACETAMINOPHEN 5/325MG TABLET PO PRN (11:00)
[2018-03-18] MEDS ORDERED: HYDROMORPHONE HCL/PF 2MG/ML CPJ IV PRN (11:00)
[2018-03-18 11:56] VITALS: BP 104/70
== END 2018-03-18 12:08 | disposition short-term general hospital (02) ==
LOC: ER 22:10 → EDBEDREQ 03-18 06:06 → EDBEDREQTM 03-18 06:06 → CANRESERV 03-18 10:02 → ENRESERV 03-18 10:02 → ER 03-18 12:08 → CANBEDREQ 03-19 00:17
DX: J18.9 Pneumonia, unspecified organism (principal); I13.10 Hypertensive heart and chronic kidney disease without heart failure, with stage 1 through stage 4 chronic kidney disease, or unspecified chronic kidney disease; N18.9 Chronic kidney disease, unspecified; M34.1 CR(E)ST syndrome; I73.00 Raynaud's syndrome without gangrene; J45.909 Unspecified asthma, uncomplicated; I42.9 Cardiomyopathy, unspecified; M32.9 Systemic lupus erythematosus, unspecified; Z79.82 Long term (current) use of aspirin; Z85.89 Personal history of malignant neoplasm of other organs and systems; Z95.810 Presence of automatic (implantable) cardiac defibrillator
CPT/HCPCS: 36415; 71045; 80053; 80305; 81025; 83605; 83880; 84484; 84703; 85025; 85610; 87040; 87086; 87804; 93005; 96361; 96365; 96368; 96375; 99285; J1170; J1956; J3010; J7030

== ENCOUNTER 2018-04-14 18:34 | Emergency (ER) | payer OTHER ==
[~2018-04-14] VITALS: Ht 157.5 cm; Wt 45.0 kg
[2018-04-14] MEDS ORDERED: NITROGLYCERIN 0.4MG TABLET SL SL PRN (20:00)
[2018-04-14 20:27] LABS: BASOPHILS % 0.9 % (0.0-2.0); HEMATOCRIT. 36.4 % (36.0-48.0); HEMOGLOBIN. 11.1 g/dL (12.0-16.0); LYMPHOCYTES % 19.3 % (20.0-50.0); MEAN CORPUSCULAR HEMOGLOBIN 24.5 pg (28.0-32.0); MEAN CORPUSCULAR VOLUME 80.2 fL (81.0-99.0); MEAN PLATELET VOLUME 8.6 fl (7.4-10.4); NEUTROPHILS % 70.8 % (40.0-76.0); PLATELET 231 x1000/uL (130-400); RED BLOOD CELL COUNT 4.54 mill/uL (4.2-5.4); RED CELL DISTRIBUTION WIDTH 17.5 % (11.6-14.6)
[2018-04-14 20:34] LABS: CHLORIDE 106 mEq/L (98-107)
[2018-04-14 20:38] LABS: HCG SCREEN NEGATIVE
[2018-04-14 20:42] LABS: D-DIMER 1.71 mg/L FEU (<0.50); PARTIAL THROMBOPLASTIN TIME 20.8 sec (23.4-31.0)
[2018-04-14] MEDS ORDERED: MORPHINE SULFATE 2 MG/ML CPJ (NOT FOR IM USE) IV ONE (22:15)
[2018-04-14] MEDS ORDERED: SODIUM CHLORIDE 0.9% 1000ML BAG (SEPSIS BOLUS) IV ONE (22:15)
[2018-04-14] MEDS ORDERED: LEVOFLOXACIN 750MG PREMIX 150 ML IV ONE (22:15)
[2018-04-14] MEDS ORDERED: ENOXAPARIN 40MG/0.4ML SYR SUBCUT SCH (22:45)
[2018-04-14] MEDS ORDERED: HYDROCODONE/ACETAMINOPHEN 10/325MG TABLET PO PRN (22:45)
[2018-04-14] MEDS ORDERED: GUAIFENESIN 200MG/10ML SUGAR FREE UDC PO PRN (22:45)
[2018-04-14] MEDS ORDERED: DIPHENHYDRAMINE 50MG/ML VIAL IV PRN (22:45)
[2018-04-14] MEDS ORDERED: IPRATROPIUM/ALBUTEROL 0.5-3(2.5)MG/3ML NEB INH PRN (22:45)
[2018-04-14] MEDS ORDERED: ACETAMINOPHEN 325MG TABLET PO PRN (22:45)
[2018-04-14] MEDS ORDERED: HYDROMORPHONE HCL/PF 2MG/ML CPJ IV PRN (22:45)
[2018-04-14] MEDS ORDERED: ONDANSETRON HCL 4MG/2ML INJ IV PRN (22:45)
[2018-04-14] MEDS ORDERED: LORAZEPAM 2MG/ML CPJ IV PRN (22:45)
[2018-04-14] MEDS ORDERED: HYDRALAZINE 20MG/ML VIAL IV PRN (22:45)
[2018-04-14] MEDS ORDERED: LEVOFLOXACIN 500MG PREMIX 100 ML IV SCH (22:45)
[2018-04-14] MEDS ORDERED: CLONIDINE 0.1MG TABLET PO PRN (22:45)
[2018-04-14] MEDS ORDERED: MORPHINE SULFATE 4 MG/ML CPJ (NOT FOR IM USE) IV ONE (22:45)
[2018-04-14] MEDS ORDERED: MAGNESIUM/ALUMINUM HYDROXIDE/SIMETHICONE 30ML UDC PO PRN (22:45)
[2018-04-14] MEDS ORDERED: DOCUSATE SODIUM 100MG CAPSULE PO PRN (22:45)
[2018-04-14] MEDS ORDERED: SODIUM CHLORIDE 0.9% 1,000 ML IV SCH (23:00)
[2018-04-15 00:26] LABS: CLARITY URINE CLEAR (CLEAR); COLOR URINE YELLOW (YELLOW); KETONES URINE NEGATIVE (NEGATIVE); LEUKOCYTE ESTERASE URINE 2+ (NEGATIVE); NITRITE URINE NEGATIVE (NEGATIVE); OCCULT BLOOD URINE NEGATIVE (NEGATIVE); PROTEIN URINE NEGATIVE (NEGATIVE); SPECIFIC GRAVITY URINE 1.008 (1.005-1.030); UROBILINOGEN URINE 0.2 E.U./dL (0.2-1.0)
[2018-04-15] MEDS ORDERED: SODIUM CHLORIDE 0.9% INJ 3ML FLUSH IVF SCH (06:00)
[2018-04-15 06:26] LABS: HEMATOCRIT. 29.2 % (36.0-48.0); HEMOGLOBIN. 9.3 g/dL (12.0-16.0); MEAN CORPUSCULAR HEMOGLOBIN 25.6 pg (28.0-32.0); MEAN CORPUSCULAR VOLUME 80.7 fL (81.0-99.0); MEAN PLATELET VOLUME 8.6 fl (7.4-10.4); PLATELET 201 x1000/uL (130-400); RED BLOOD CELL COUNT 3.62 mill/uL (4.2-5.4); RED CELL DISTRIBUTION WIDTH 17.2 % (11.6-14.6)
[2018-04-15 06:35] LABS: CHLORIDE 111 mEq/L (98-107)
[2018-04-15 06:44] LABS: LDL CHOLESTEROL 71 mg/dL (5-100)
[2018-04-15 06:45] LABS: CREATINE KINASE 27 IU/L (26-192); HDL CHOLESTEROL 29 mg/dL (40-59); T4 FREE 1.06 ng/dL (0.76-1.46)
[2018-04-15 06:49] LABS: CREATINE KINASE MB FRACTION 1.6 ng/mL (0.5-3.6)
[2018-04-15 09:26] LABS: PLATELET ESTIMATE NORMAL
[2018-04-15 11:02] VITALS: BP 90/54
== END 2018-04-15 12:00 | disposition short-term general hospital (02) ==
LOC: ER 18:34 → ENRESERV 04-15 09:26 → CANRESERV 04-15 09:26 → ER 04-15 12:00 → CANBEDREQ 04-15 16:31
DX: R07.9 Chest pain, unspecified (principal); J18.9 Pneumonia, unspecified organism; M34.9 Systemic sclerosis, unspecified; D72.829 Elevated white blood cell count, unspecified; Q75.2 Hypertelorism; I12.9 Hypertensive chronic kidney disease with stage 1 through stage 4 chronic kidney disease, or unspecified chronic kidney disease; N19 Unspecified kidney failure; M79.7 Fibromyalgia; M34.1 CR(E)ST syndrome; I73.00 Raynaud's syndrome without gangrene; I42.9 Cardiomyopathy, unspecified; Z88.6 Allergy status to analgesic agent; Z88.8 Allergy status to other drugs, medicaments and biological substances; Z79.82 Long term (current) use of aspirin; Z95.810 Presence of automatic (implantable) cardiac defibrillator
CPT/HCPCS: 36415; 71045; 78582; 80053; 80061; 81003; 81025; 82550; 82553; 83605; 83880; 84439; 84443; 84484; 84703; 85025; 85379; 85610; 85730; 87040; 87086; 93005; 93970; 96365; 96366; 96375; 99285; A9540; A9558; J1170; J1956; J2270; J2405; J7030

== ENCOUNTER 2018-05-14 23:52 | Inpatient (IN) | payer OTHER ==
[~2018-05-14] VITALS: Ht 157.5 cm; Wt 53.7 kg
[2018-05-15] MEDS ORDERED: IPRATROPIUM BROMIDE (0.02%) 0.5MG/2.5ML NEB HHN STA (06:41)
[2018-05-15] MEDS ORDERED: ALBUTEROL (0.083%) 2.5MG/3ML NEB HHN STA (06:41)
[2018-05-15] MEDS ORDERED: HYDROCODONE/ACETAMINOPHEN 5/325MG TABLET PO STA (06:41)
[2018-05-15 08:31] LABS: CHLORIDE 109 mEq/L (98-107)
[2018-05-15 08:40] LABS: BASOPHILS % 0.6 % (0.0-2.0); EOSINOPHILS % 2.3 % (0.0-5.0); HEMATOCRIT. 34.1 % (36.0-48.0); HEMOGLOBIN. 10.7 g/dL (12.0-16.0); LYMPHOCYTES % 13.5 % (20.0-50.0); MEAN CORPUSCULAR HEMOGLOBIN 25.6 pg (28.0-32.0); MEAN CORPUSCULAR VOLUME 81.3 fL (81.0-99.0); NEUTROPHILS % 78.6 % (40.0-76.0); PLATELET 188 x1000/uL (130-400); RED CELL DISTRIBUTION WIDTH 19.3 % (11.6-14.6)
[2018-05-15 08:43] LABS: CLARITY URINE CLEAR (CLEAR); COLOR URINE YELLOW (YELLOW); KETONES URINE NEGATIVE (NEGATIVE); LEUKOCYTE ESTERASE URINE NEGATIVE (NEGATIVE); NITRITE URINE NEGATIVE (NEGATIVE); OCCULT BLOOD URINE NEGATIVE (NEGATIVE); PROTEIN URINE NEGATIVE (NEGATIVE); UROBILINOGEN URINE 0.2 E.U./dL (0.2-1.0)
[2018-05-15] MEDS ORDERED: ALBUTEROL (0.083%) 2.5MG/3ML NEB ONE (12:07)
[2018-05-15] MEDS ORDERED: IPRATROPIUM BROMIDE (0.02%) 0.5MG/2.5ML NEB ONE (12:07)
[2018-05-15] MEDS ORDERED: ACETAMINOPHEN 325MG TABLET PO PRN (13:30)
[2018-05-15] MEDS ORDERED: LEVOFLOXACIN 750MG PREMIX 150 ML IV ONE (13:30)
[2018-05-15] MEDS ORDERED: SODIUM CHLORIDE 0.9% 500 ML IV ONE (14:13)
[2018-05-15 16:00] VITALS: BP 105/33
[2018-05-15 17:40] VITALS: BP 84/43
[2018-05-15 20:00] VITALS: BP 80/45
[2018-05-15] MEDS: DICLOFENAC SODIUM 75MG DR (EC) TABLET PO SCH (21:45)
[2018-05-15] MEDS ORDERED: MORPHINE SULFATE 4 MG/ML CPJ (NOT FOR IM USE) IV PRN (21:45)
[2018-05-15] MEDS ORDERED: IPRATROPIUM/ALBUTEROL 0.5-3(2.5)MG/3ML NEB HHN PRN (21:45)
[2018-05-16] VITALS: BP 84/42
[2018-05-16 04:00] VITALS: BP 107/45
[2018-05-16] MEDS: OXYCODONE HCL/ACETAMINOPHEN 5/325MG TABLET PO PRN ×2 (05:15)
[2018-05-16 08:00] VITALS: BP 88/43
[2018-05-16] MEDS: CARVEDILOL 6.25 MG TABLET PO SCH ×2 (09:00→20:53)
[2018-05-16] MEDS: DIGOXIN 250MCG TABLET PO SCH (09:26)
[2018-05-16] MEDS: ACETAMINOPHEN 325MG TABLET PO PRN (09:27)
[2018-05-16] MEDS: DICLOFENAC SODIUM 75MG DR (EC) TABLET PO SCH ×2 (09:27→17:36)
[2018-05-16 11:58] VITALS: BP 75/41
[2018-05-16] MEDS ORDERED: SODIUM CHLORIDE 0.9% 250 ML IV SCH (12:45)
[2018-05-16] MEDS ORDERED: LEVOFLOXACIN 250MG PREMIX 50 ML IV SCH (15:00)
[2018-05-16 16:26] VITALS: BP 89/47
[2018-05-16] MEDS: IPRATROPIUM/ALBUTEROL 0.5-3(2.5)MG/3ML NEB HHN SCH (20:03)
[2018-05-16] MEDS: ONDANSETRON HCL 4MG/2ML INJ IV PRN (20:49)
[2018-05-16] MEDS: ALPRAZOLAM 0.5 MG TABLET PO PRN (20:49)
[2018-05-17] VITALS (20 sets, daily range): BP systolic 69–100; BP diastolic 45–64
[2018-05-17] MEDS: IPRATROPIUM/ALBUTEROL 0.5-3(2.5)MG/3ML NEB HHN SCH ×4 (01:06→20:29)
[2018-05-17] MEDS: ACETAMINOPHEN 325MG TABLET PO PRN (06:13)
[2018-05-17 07:37] LABS: DIGOXIN 1.3 ng/mL (0.9-2.0)
[2018-05-17] MEDS: CARVEDILOL 6.25 MG TABLET PO SCH ×2 (08:18→21:00)
[2018-05-17] MEDS ORDERED: SODIUM CHLORIDE 0.9% 250 ML IV SCH ×2 (08:45→12:15)
[2018-05-17] MEDS: DICLOFENAC SODIUM 75MG DR (EC) TABLET PO SCH ×2 (09:00→17:49)
[2018-05-17] MEDS: DIGOXIN 250MCG TABLET PO SCH (09:00)
[2018-05-17] MEDS ORDERED: LIDOCAINE HCL 1% 20ML VIAL (Pyxis) INJ ONE (09:18)
[2018-05-17] MEDS ORDERED: SODIUM CHLORIDE 0.9% 250 ML IV ONE ×4 (11:00→17:15)
[2018-05-17] MEDS: CITRIC ACID/SODIUM CITRATE SOLN 30ML UDC PO SCH ×2 (13:54→17:49)
[2018-05-17 16:52] LABS: BASOPHILS % 0.4 % (0.0-2.0); EOSINOPHILS % 2.2 % (0.0-5.0); HEMATOCRIT. 28.1 % (36.0-48.0); HEMOGLOBIN. 8.8 g/dL (12.0-16.0); LYMPHOCYTES % 7.8 % (20.0-50.0); MEAN CORPUSCULAR HEMOGLOBIN 25.6 pg (28.0-32.0); MEAN CORPUSCULAR VOLUME 81.6 fL (81.0-99.0); MEAN PLATELET VOLUME 8.1 fl (7.4-10.4); NEUTROPHILS % 86.6 % (40.0-76.0); PLATELET 139 x1000/uL (130-400); RED BLOOD CELL COUNT 3.45 mill/uL (4.2-5.4); RED CELL DISTRIBUTION WIDTH 19.2 % (11.6-14.6)
[2018-05-17] MEDS: MEROPENEM 500 MG in SODIUM CHLORIDE 0.9% 50 ML IV SCH (17:49)
[2018-05-17] MEDS: PANTOPRAZOLE SODIUM 40 MG/VIAL IV SCH (17:49)
[2018-05-17] MEDS: SODIUM CHLORIDE 0.9% 1,000 ML IV SCH (17:50)
[2018-05-17 18:04] LABS: T4 FREE 1.42 ng/dL (0.76-1.46)
[2018-05-18] VITALS (24 sets, daily range): BP systolic 83–126; BP diastolic 53–81
[2018-05-18] MEDS: MEROPENEM 500 MG in SODIUM CHLORIDE 0.9% 50 ML IV SCH ×3 (01:34→17:49)
[2018-05-18] MEDS: IPRATROPIUM/ALBUTEROL 0.5-3(2.5)MG/3ML NEB HHN SCH ×2 (02:06→21:17)
[2018-05-18] MEDS: SODIUM CHLORIDE 0.9% 1,000 ML IV SCH ×2 (04:29→13:00)
[2018-05-18 07:29] LABS: BASOPHILS % 0.3 % (0.0-2.0); EOSINOPHILS % 2.7 % (0.0-5.0); HEMATOCRIT. 25.2 % (36.0-48.0); HEMOGLOBIN. 7.9 g/dL (12.0-16.0); LYMPHOCYTES % 12.2 % (20.0-50.0); MEAN CORPUSCULAR HEMOGLOBIN 25.6 pg (28.0-32.0); MEAN CORPUSCULAR VOLUME 81.3 fL (81.0-99.0); MEAN PLATELET VOLUME 8.1 fl (7.4-10.4); NEUTROPHILS % 81.8 % (40.0-76.0); PLATELET 135 x1000/uL (130-400); RED CELL DISTRIBUTION WIDTH 19.2 % (11.6-14.6)
[2018-05-18] MEDS: DIGOXIN 250MCG TABLET PO SCH (08:38)
[2018-05-18] MEDS: DICLOFENAC SODIUM 75MG DR (EC) TABLET PO SCH (08:38)
[2018-05-18] MEDS: PANTOPRAZOLE SODIUM 40 MG/VIAL IV SCH ×2 (08:38→17:49)
[2018-05-18] MEDS: CITRIC ACID/SODIUM CITRATE SOLN 30ML UDC PO SCH ×3 (08:39→17:49)
[2018-05-18] MEDS: CARVEDILOL 6.25 MG TABLET PO SCH (08:39)
[2018-05-18] MEDS: CARVEDILOL 3.125 MG TABLET PO SCH ×2 (11:00→21:00)
[2018-05-18 11:47] LABS: TOTAL IRON BINDING CAPACITY 159 ug/dL (250-450)
[2018-05-18] MEDS: OXYCODONE HCL/ACETAMINOPHEN 5/325MG TABLET PO PRN (20:21)
[2018-05-18 20:59] LABS: HEMOGLOBIN 9.1 g/dL (12.0-16.0)
[2018-05-18 21:00] LABS: INR 1.1; PROTHROMBIN TIME 10.6 sec (9.1-11.1)
[2018-05-19] VITALS (16 sets, daily range): BP systolic 99–126; BP diastolic 63–84
[2018-05-19] MEDS: IPRATROPIUM/ALBUTEROL 0.5-3(2.5)MG/3ML NEB HHN SCH ×5 (01:33→21:20)
[2018-05-19] MEDS: MEROPENEM 500 MG in SODIUM CHLORIDE 0.9% 50 ML IV SCH ×3 (02:13→17:43)
[2018-05-19] MEDS: SODIUM CHLORIDE 0.9% 1,000 ML IV SCH ×2 (02:15→13:53)
[2018-05-19 08:52] LABS: BASOPHILS % 0.5 % (0.0-2.0); EOSINOPHILS % 5.5 % (0.0-5.0); HEMOGLOBIN. 8.8 g/dL (12.0-16.0); LYMPHOCYTES % 13.7 % (20.0-50.0); MEAN CORPUSCULAR HEMOGLOBIN 26.1 pg (28.0-32.0); MEAN CORPUSCULAR VOLUME 83.3 fL (81.0-99.0); MEAN PLATELET VOLUME 8.2 fl (7.4-10.4); MONOCYTES % 3.5 % (2.0-8.0); NEUTROPHILS % 76.8 % (40.0-76.0); PLATELET 133 x1000/uL (130-400); RED BLOOD CELL COUNT 3.36 mill/uL (4.2-5.4)
[2018-05-19] MEDS: PANTOPRAZOLE SODIUM 40 MG/VIAL IV SCH ×2 (08:53→17:42)
[2018-05-19] MEDS: CITRIC ACID/SODIUM CITRATE SOLN 30ML UDC PO SCH ×3 (08:53→17:00)
[2018-05-19] MEDS: CARVEDILOL 3.125 MG TABLET PO SCH ×2 (09:00→21:00)
[2018-05-19] MEDS: FERROUS SULFATE 300MG/5ML UDC PO SCH ×3 (09:01→17:42)
[2018-05-19] MEDS: OXYCODONE HCL/ACETAMINOPHEN 5/325MG TABLET PO PRN (09:32)
[2018-05-19] MEDS ORDERED: MAGNESIUM 2 G PREMIX 50 ML IV SCH (13:00)
[2018-05-19] MEDS: ONDANSETRON HCL 4MG/2ML INJ IV PRN (14:02)
[2018-05-19] MEDS ORDERED: SODIUM CHLORIDE 0.45% 1,000 ML IV SCH (14:45)
[2018-05-20] VITALS (16 sets, daily range): BP systolic 100–117; BP diastolic 68–82
[2018-05-20] MEDS: ALPRAZOLAM 0.5 MG TABLET PO PRN (00:43)
[2018-05-20] MEDS: MEROPENEM 500 MG in SODIUM CHLORIDE 0.9% 50 ML IV SCH ×3 (01:29→16:36)
[2018-05-20] MEDS: IPRATROPIUM/ALBUTEROL 0.5-3(2.5)MG/3ML NEB HHN SCH (02:40)
[2018-05-20 04:13] LABS: OVA & PARASITE EXAM Final report (.)
[2018-05-20 07:06] LABS: BASOPHILS % 0.7 % (0.0-2.0); EOSINOPHILS % 6.3 % (0.0-5.0); HEMATOCRIT. 27.2 % (36.0-48.0); HEMOGLOBIN. 8.8 g/dL (12.0-16.0); LYMPHOCYTES % 14.8 % (20.0-50.0); MEAN CORPUSCULAR HEMOGLOBIN 26.7 pg (28.0-32.0); MEAN CORPUSCULAR VOLUME 82.8 fL (81.0-99.0); MEAN PLATELET VOLUME 8.3 fl (7.4-10.4); MONOCYTES % 4.1 % (2.0-8.0); NEUTROPHILS % 74.1 % (40.0-76.0); PLATELET 166 x1000/uL (130-400); RED BLOOD CELL COUNT 3.29 mill/uL (4.2-5.4); RED CELL DISTRIBUTION WIDTH 19.1 % (11.6-14.6)
[2018-05-20] MEDS: FERROUS SULFATE 300MG/5ML UDC PO SCH ×3 (07:20→16:40)
[2018-05-20 07:32] LABS: PHOSPHORUS 2.4 mg/dL (2.5-4.9)
[2018-05-20] MEDS: CARVEDILOL 3.125 MG TABLET PO SCH (08:31)
[2018-05-20] MEDS: PANTOPRAZOLE SODIUM 40 MG/VIAL IV SCH ×2 (08:31→16:35)
[2018-05-20] MEDS: CITRIC ACID/SODIUM CITRATE SOLN 30ML UDC PO SCH ×3 (08:31→16:40)
[2018-05-20 09:11] LABS: SACCHAROMYCES CEREVISIAE IGG 73.9 Units (0.0-24.9); SACCHAROMYCES CEREVISIAE IGM <20.0 Units (0.0-24.9)
[2018-05-20] MEDS ORDERED: POTASSIUM PHOS,M-BASIC-D-BASIC 10 MMOL in DEXT 5% WATER 246.6667 ML IV NR (11:00)
[2018-05-20 14:18] LABS: ATYPICAL pANCA <1:20 titer (Neg:<1:20)
== END 2018-05-20 18:20 | disposition home health service (06) | DRG 469 ==
LOC: ER 23:55 → 6EST 05-15 13:32 → EDBEDREQ 05-15 13:35 → ENRESERV 05-15 14:31 → UNDOADMIN 05-15 17:07 → 6EST 05-15 17:07 → 3WST 05-17 10:06
PROVIDERS: ADMIT Internal Medicine; ATTEND Internal Medicine
PROC: 02HV33Z Insertion of Infusion Device into Superior Vena Cava, Percutaneous Approach (ICD-10-PCS; 2018-05-17)
PROC: B548ZZA Ultrasonography of Superior Vena Cava, Guidance (ICD-10-PCS; 2018-05-17)
PROC: 30233N1 Transfusion of Nonautologous Red Blood Cells into Peripheral Vein, Percutaneous Approach (ICD-10-PCS; principal; 2018-05-18)
DX: N17.0 Acute kidney failure with tubular necrosis (principal); E43 Unspecified severe protein-calorie malnutrition; I50.23 Acute on chronic systolic (congestive) heart failure; J18.9 Pneumonia, unspecified organism; E87.2 Acidosis; I27.20 Pulmonary hypertension, unspecified; E83.42 Hypomagnesemia; I13.0 Hypertensive heart and chronic kidney disease with heart failure and stage 1 through stage 4 chronic kidney disease, or unspecified chronic kidney disease; E87.5 Hyperkalemia; I95.9 Hypotension, unspecified; I42.0 Dilated cardiomyopathy; M34.9 Systemic sclerosis, unspecified; D64.9 Anemia, unspecified; F41.9 Anxiety disorder, unspecified; J45.909 Unspecified asthma, uncomplicated; M19.90 Unspecified osteoarthritis, unspecified site; M79.7 Fibromyalgia; E86.9 Volume depletion, unspecified; R13.10 Dysphagia, unspecified; N18.9 Chronic kidney disease, unspecified; N39.0 Urinary tract infection, site not specified; K21.9 Gastro-esophageal reflux disease without esophagitis; B96.20 Unspecified Escherichia coli [E. coli] as the cause of diseases classified elsewhere; W01.0XXA Fall on same level from slipping, tripping and stumbling without subsequent striking against object, initial encounter; R10.9 Unspecified abdominal pain; Z16.12 Extended spectrum beta lactamase (ESBL) resistance; E86.0 Dehydration; Z95.810 Presence of automatic (implantable) cardiac defibrillator; Z82.49 Family history of ischemic heart disease and other diseases of the circulatory system; Z87.01 Personal history of pneumonia (recurrent); Z88.8 Allergy status to other drugs, medicaments and biological substances; Z79.899 Other long term (current) drug therapy; Z79.82 Long term (current) use of aspirin; Y93.89 Activity, other specified; Y92.89 Other specified places as the place of occurrence of the external cause; Y99.8 Other external cause status; Z68.21 Body mass index [BMI] 21.0-21.9, adult
CPT/HCPCS: 36415; 36569; 71045; 73502; 73562; 73610; 76770; 76937; 80048; 80162; 82150; 82705; 82784; 82941; 82962; 83516; 83540; 83550; 83735; 84100; 84132; 84145; 84439; 84443; 84481; 85014; 85018; 85049; 85384; 85651; 86140; 86255; 86256; 86671; 86850; 86900; 86920; 87077; 87177; 87186; 87209; 87493; 92610; 93005; 93306; 94640; 97116; 97162; 97165; 99285; C1725; C9113; J1956; J2185; J2270; J2405; J3475; J3490; J7030; J7040; J7050; J7060; J7611; J7620; P9016

== ENCOUNTER 2018-06-22 19:01 | Inpatient (IN) | payer OTHER ==
[~2018-06-22] VITALS: Ht 157.5 cm; Wt 44.9 kg
[2018-06-22] MEDS ORDERED: MORPHINE SULFATE 4 MG/ML CPJ (NOT FOR IM USE) IV STA (19:36)
[2018-06-22] MEDS ORDERED: ONDANSETRON HCL 4MG/2ML INJ IV STA (19:36)
[2018-06-22] MEDS ORDERED: LEVOFLOXACIN 750MG PREMIX 150 ML IV ONE (19:45)
[2018-06-22] MEDS ORDERED: SODIUM CHLORIDE 0.9% 1000ML BAG (SEPSIS BOLUS) IV ONE (19:45)
[2018-06-22 20:11] LABS: CLARITY URINE CLEAR (CLEAR); COLOR URINE YELLOW (YELLOW); KETONES URINE NEGATIVE (NEGATIVE); LEUKOCYTE ESTERASE URINE NEGATIVE (NEGATIVE); NITRITE URINE NEGATIVE (NEGATIVE); OCCULT BLOOD URINE NEGATIVE (NEGATIVE); PROTEIN URINE NEGATIVE (NEGATIVE); SPECIFIC GRAVITY URINE 1.009 (1.005-1.030); UROBILINOGEN URINE 0.2 E.U./dL (0.2-1.0)
[2018-06-22 20:23] LABS: HEMATOCRIT. 30.1 % (36.0-48.0); HEMOGLOBIN. 9.5 g/dL (12.0-16.0); MEAN CORPUSCULAR HEMOGLOBIN 26.7 pg (28.0-32.0); MEAN CORPUSCULAR VOLUME 84.3 fL (81.0-99.0); MEAN PLATELET VOLUME 7.8 fl (7.4-10.4); PLATELET 225 x1000/uL (130-400); RED BLOOD CELL COUNT 3.57 mill/uL (4.2-5.4); RED CELL DISTRIBUTION WIDTH 19.9 % (11.6-14.6)
[2018-06-22 20:26] LABS: CHLORIDE 108 mEq/L (98-107)
[2018-06-22 20:28] LABS: INR 1.1; PARTIAL THROMBOPLASTIN TIME 26.1 sec (23.4-31.0); PROTHROMBIN TIME 10.6 sec (9.1-11.1)
[2018-06-22] MEDS ORDERED: PIPERACILLIN/TAZ 3.375G PREMIX 50 ML IV ONE (20:45)
[2018-06-22] MEDS ORDERED: VANCOMYCIN 1 G PREMIX 200 ML IV SCH (20:45)
[2018-06-22] MEDS ORDERED: DIPHENHYDRAMINE 50MG/ML VIAL IV ONE (20:45)
[2018-06-22 21:03] LABS: PLATELET ESTIMATE NORMAL
[2018-06-22 21:10] LABS: HCG SCREEN NEGATIVE
[2018-06-22] MEDS ORDERED: METRONIDAZOLE 500 MG PREMIX 100 ML IV ONE (23:30)
[2018-06-23] VITALS (7 sets, daily range): BP systolic 90–154; BP diastolic 57–86
[2018-06-23] MEDS ORDERED: SODIUM CHLORIDE 0.9% 500 ML IV ONE (06:00)
[2018-06-23] MEDS ORDERED: FERR-71 MT (11:36)
[2018-06-23] MEDS ORDERED: PRED-276 MT (11:36)
[2018-06-23] MEDS ORDERED: DIGOXIN 250MCG TABLET PO SCH (17:30)
[2018-06-23] MEDS ORDERED: LEVOFLOXACIN 500MG PREMIX 100 ML IV SCH (17:30)
[2018-06-23] MEDS ORDERED: ONDANSETRON HCL 4MG/2ML INJ IV PRN (17:30)
[2018-06-23] MEDS ORDERED: IPRATROPIUM/ALBUTEROL 0.5-3(2.5)MG/3ML NEB INH PRN (17:30)
[2018-06-23] MEDS: SODIUM CHLORIDE 0.9% 1,000 ML IV SCH (18:26)
[2018-06-23] MEDS: ENOXAPARIN 30MG/0.3ML SYR SUBCUT SCH ×2 (18:29→18:37)
[2018-06-23] MEDS: VANCOMYCIN 500 MG PREMIX 100 ML IV SCH ×2 (20:00→21:33)
[2018-06-23] MEDS ORDERED: LEVOFLOXACIN 250MG PREMIX 50 ML IV SCH (20:00)
[2018-06-23] MEDS: ACETAMINOPHEN 325MG TABLET PO PRN (21:33)
[2018-06-24] VITALS (12 sets, daily range): BP systolic 82–121; BP diastolic 49–72
[2018-06-24 00:33] LABS: CREATINE KINASE 24 IU/L (26-192)
[2018-06-24 00:34] LABS: CREATINE KINASE MB FRACTION 2.4 ng/mL (0.5-3.6)
[2018-06-24] MEDS: ACETAMINOPHEN 325MG TABLET PO PRN ×3 (04:49→21:15)
[2018-06-24 06:50] LABS: BASOPHILS % 0.8 % (0.0-2.0); HEMOGLOBIN. 10.3 g/dL (12.0-16.0); LYMPHOCYTES % 20.9 % (20.0-50.0); MEAN CORPUSCULAR HEMOGLOBIN 26.7 pg (28.0-32.0); MEAN CORPUSCULAR VOLUME 85.3 fL (81.0-99.0); MEAN PLATELET VOLUME 8.1 fl (7.4-10.4); MONOCYTES % 3.9 % (2.0-8.0); NEUTROPHILS % 70.4 % (40.0-76.0); PLATELET 222 x1000/uL (130-400); RED BLOOD CELL COUNT 3.87 mill/uL (4.2-5.4); RED CELL DISTRIBUTION WIDTH 19.6 % (11.6-14.6)
[2018-06-24 07:23] LABS: CREATINE KINASE MB FRACTION 2.6 ng/mL (0.5-3.6)
[2018-06-24 07:32] LABS: DIGOXIN 1.7 ng/mL (0.9-2.0)
[2018-06-24] MEDS ORDERED: LIDOCAINE HCL 1% 20ML VIAL (Pyxis) INJ ONE (08:28)
[2018-06-24] MEDS: SODIUM CHLORIDE 0.9% 1,000 ML IV SCH (09:26)
[2018-06-24] MEDS ORDERED: VANCOMYCIN 500 MG PREMIX 100 ML IV SCH (10:00)
[2018-06-24] MEDS: LEVOFLOXACIN 250MG PREMIX 50 ML IV SCH (10:27)
[2018-06-24] MEDS: VANCOMYCIN 500 MG PREMIX 100 ML IV SCH (21:16)
[2018-06-25] VITALS (12 sets, daily range): BP systolic 99–146; BP diastolic 53–77
[2018-06-25] MEDS: SODIUM CHLORIDE 0.9% 1,000 ML IV SCH ×2 (03:36→20:46)
[2018-06-25 06:55] LABS: *AMPHETAMINES SCREEN URINE NEGATIVE (NEGATIVE); *BARBITURATES SCREEN URINE NEGATIVE (NEGATIVE); *BENZODIAZEPINES SCREEN URINE NEGATIVE (NEGATIVE); *COCAINE SCREEN URINE NEGATIVE (NEGATIVE); CANNABINOID URINE SCREEN NEGATIVE (NEGATIVE); METHADONE URINE SCREEN NEGATIVE (NEGATIVE); PHENCYCLIDINE URINE SCREEN NEGATIVE (NEGATIVE)
[2018-06-25 07:05] LABS: OPIATES URINE SCREEN PRESUMTIVE POSITIVE (NEGATIVE)
[2018-06-25] MEDS: ACETAMINOPHEN 325MG TABLET PO PRN (08:36)
[2018-06-25] MEDS: VANCOMYCIN 500 MG PREMIX 100 ML IV SCH ×2 (09:11→20:44)
[2018-06-25] MEDS: LEVOFLOXACIN 250MG PREMIX 50 ML IV SCH (10:20)
[2018-06-25 11:44] LABS: BASOPHILS % 0.7 % (0.0-2.0); EOSINOPHILS % 4.8 % (0.0-5.0); HEMATOCRIT. 27.8 % (36.0-48.0); MEAN CORPUSCULAR HEMOGLOBIN 27.2 pg (28.0-32.0); MEAN CORPUSCULAR VOLUME 84.1 fL (81.0-99.0); MONOCYTES % 4.3 % (2.0-8.0); NEUTROPHILS % 73.2 % (40.0-76.0); PLATELET 205 x1000/uL (130-400); RED BLOOD CELL COUNT 3.31 mill/uL (4.2-5.4); RED CELL DISTRIBUTION WIDTH 19.8 % (11.6-14.6)
[2018-06-25 11:49] LABS: CHLORIDE 110 mEq/L (98-107)
[2018-06-25 11:59] LABS: LDL CHOLESTEROL 41 mg/dL (5-100)
[2018-06-25 12:02] LABS: CREATINE KINASE 25 IU/L (26-192); CREATINE KINASE MB FRACTION 2.5 ng/mL (0.5-3.6); HDL CHOLESTEROL 28 mg/dL (40-59)
[2018-06-25] MEDS: ENOXAPARIN 30MG/0.3ML SYR SUBCUT SCH (18:30)
[2018-06-25] MEDS: MORPHINE SULFATE 4 MG/ML CPJ (NOT FOR IM USE) IV PRN (20:47)
[2018-06-25] MEDS: METRONIDAZOLE 500MG TABLET PO SCH (23:42)
[2018-06-26] VITALS (7 sets, daily range): BP systolic 99–122; BP diastolic 59–76
[2018-06-26] MEDS: METRONIDAZOLE 500MG TABLET PO SCH ×2 (06:17→14:14)
[2018-06-26] MEDS: MORPHINE SULFATE 4 MG/ML CPJ (NOT FOR IM USE) IV PRN ×2 (06:18→16:50)
[2018-06-26] MEDS: VANCOMYCIN 500 MG PREMIX 100 ML IV SCH (08:41)
[2018-06-26] MEDS ORDERED: CARVEDILOL 3.125 MG TABLET PO SCH (10:00)
[2018-06-26] MEDS ORDERED: LISINOPRIL 5MG TABLET PO SCH (10:00)
[2018-06-26] MEDS: LEVOFLOXACIN 250MG PREMIX 50 ML IV SCH (10:17)
[2018-06-26 10:36] LABS: EOSINOPHILS % 5.6 % (0.0-5.0); HEMATOCRIT. 27.2 % (36.0-48.0); HEMOGLOBIN. 8.8 g/dL (12.0-16.0); LYMPHOCYTES % 18.1 % (20.0-50.0); MEAN CORPUSCULAR HEMOGLOBIN 27.1 pg (28.0-32.0); MEAN CORPUSCULAR VOLUME 84.4 fL (81.0-99.0); MONOCYTES % 4.4 % (2.0-8.0); NEUTROPHILS % 70.9 % (40.0-76.0); PLATELET 168 x1000/uL (130-400); RED BLOOD CELL COUNT 3.23 mill/uL (4.2-5.4); RED CELL DISTRIBUTION WIDTH 19.5 % (11.6-14.6)
[2018-06-26 10:50] LABS: CHLORIDE 113 mEq/L (98-107)
[2018-06-26] MEDS ORDERED: MAGNESIUM 4 G PREMIX 100 ML IV NR (11:00)
[2018-06-26] MEDS: SODIUM CHLORIDE 0.9% 1,000 ML IV SCH (12:07)
[2018-06-26] MEDS: ENOXAPARIN 30MG/0.3ML SYR SUBCUT SCH (18:30)
[2018-06-26] MEDS ORDERED: VANCOMYCIN 750 MG PREMIX 150 ML IV SCH (21:00)
[2018-06-27] MEDS ORDERED: LEVOFLOXACIN 500MG PREMIX 100 ML IV SCH (10:00)
== END 2018-06-26 19:03 | disposition home or self-care (01) | DRG 720 ==
LOC: ER 19:01 → 3WST 06-23 00:27 → ENRESERV 06-23 03:38
PROVIDERS: ADMIT Internal Medicine; ATTEND Internal Medicine
PROC: 02HV33Z Insertion of Infusion Device into Superior Vena Cava, Percutaneous Approach (ICD-10-PCS; principal; 2018-06-24)
PROC: B5181ZA Fluoroscopy of Superior Vena Cava using Low Osmolar Contrast, Guidance (ICD-10-PCS; 2018-06-24)
PROC: B548ZZA Ultrasonography of Superior Vena Cava, Guidance (ICD-10-PCS; 2018-06-24)
DX: A41.9 Sepsis, unspecified organism (principal); N17.9 Acute kidney failure, unspecified; I11.0 Hypertensive heart disease with heart failure; I27.20 Pulmonary hypertension, unspecified; J18.1 Lobar pneumonia, unspecified organism; I50.9 Heart failure, unspecified; E83.42 Hypomagnesemia; I42.0 Dilated cardiomyopathy; A09 Infectious gastroenteritis and colitis, unspecified; E78.00 Pure hypercholesterolemia, unspecified; I25.10 Atherosclerotic heart disease of native coronary artery without angina pectoris; I44.0 Atrioventricular block, first degree; J45.909 Unspecified asthma, uncomplicated; K21.9 Gastro-esophageal reflux disease without esophagitis; K80.20 Calculus of gallbladder without cholecystitis without obstruction; M10.9 Gout, unspecified; M34.1 CR(E)ST syndrome; M79.7 Fibromyalgia; T46.0X5A Adverse effect of cardiac-stimulant glycosides and drugs of similar action, initial encounter; Z82.49 Family history of ischemic heart disease and other diseases of the circulatory system; Z95.810 Presence of automatic (implantable) cardiac defibrillator; Y92.89 Other specified places as the place of occurrence of the external cause; Z88.9 Allergy status to unspecified drugs, medicaments and biological substances; R65.20 Severe sepsis without septic shock
CPT/HCPCS: 36415; 36569; 36573; 71045; 74176; 80048; 80061; 80162; 80202; 80305; 82550; 82553; 83605; 83735; 83880; 84145; 84443; 84484; 84703; 85379; 93005; 93970; 96365; 96375; 99291; C1725; J1200; J1650; J1956; J2270; J2405; J2543; J3370; J3475; J3490; J7030; J7620

== ENCOUNTER 2018-08-01 19:11 | Inpatient (IN) | payer OTHER ==
[~2018-08-01] VITALS: Ht 157.5 cm; Wt 42.6 kg
[2018-08-01 11:59] VITALS: BP 122/77
[~2018-08-01 19:11] MED LIST changes: +FERR-71 MT; +PRED-276 MT
[2018-08-01] MEDS ORDERED: ASPIRIN 81MG TABLET PO ONE (19:30)
[2018-08-01] MEDS ORDERED: SODIUM CHLORIDE 0.9% 1,000 ML IV ONE (19:30)
[2018-08-01] MEDS ORDERED: MAGNESIUM/ALUMINUM HYDROXIDE/SIMETHICONE 30ML UDC PO ONE (19:45)
[2018-08-01] MEDS ORDERED: VISCOUS LIDOCAINE 2% 15 ML UDC PO ONE (19:45)
[2018-08-01 20:16] LABS: EOSINOPHILS % 3.3 % (0.0-5.0); HEMATOCRIT. 35.4 % (36.0-48.0); HEMOGLOBIN. 11.4 g/dL (12.0-16.0); LYMPHOCYTES % 16.6 % (20.0-50.0); MEAN CORPUSCULAR HEMOGLOBIN 27.4 pg (28.0-32.0); MEAN CORPUSCULAR VOLUME 84.9 fL (81.0-99.0); MEAN PLATELET VOLUME 8.8 fl (7.4-10.4); MONOCYTES % 3.6 % (2.0-8.0); NEUTROPHILS % 75.5 % (40.0-76.0); PLATELET 329 x1000/uL (130-400); RED BLOOD CELL COUNT 4.17 mill/uL (4.2-5.4); RED CELL DISTRIBUTION WIDTH 16.9 % (11.6-14.6)
[2018-08-01 20:19] LABS: CHLORIDE 100 mEq/L (98-107)
[2018-08-01 20:27] LABS: CLARITY URINE CLEAR (CLEAR); COLOR URINE YELLOW (YELLOW); KETONES URINE NEGATIVE (NEGATIVE); LEUKOCYTE ESTERASE URINE NEGATIVE (NEGATIVE); NITRITE URINE NEGATIVE (NEGATIVE); OCCULT BLOOD URINE NEGATIVE (NEGATIVE); PROTEIN URINE NEGATIVE (NEGATIVE); SPECIFIC GRAVITY URINE 1.013 (1.005-1.030); UROBILINOGEN URINE 0.2 E.U./dL (0.2-1.0)
[2018-08-01] MEDS ORDERED: TRAMADOL 50MG TABLET PO ONE (21:30)
[2018-08-01] MEDS ORDERED: ONDANSETRON HCL 4MG/2ML INJ IV ONE (21:30)
[2018-08-01 23:00] VITALS: BP 122/77
[2018-08-01 23:59] VITALS: BP 122/77
[2018-08-02] MEDS ORDERED: NON FORMULARY PATIENT HOME MED XX SCH ×11 (00:30→00:45)
[2018-08-02] MEDS ORDERED: IPRATROPIUM/ALBUTEROL 0.5-3(2.5)MG/3ML NEB NEB PRN (00:30)
[2018-08-02] MEDS: LORAZEPAM 1MG TABLET PO PRN (01:00)
[2018-08-02] MEDS ORDERED: DIPHENHYDRAMINE 50MG CAPSULE PO PRN (01:00)
[2018-08-02] MEDS ORDERED: DIPHENHYDRAMINE 50MG/ML VIAL IV PRN (01:00)
[2018-08-02 04:00] VITALS: BP 108/69
[2018-08-02] MEDS ORDERED: HYDROCODONE/ACETAMINOPHEN 5/325MG TABLET PO PRN (06:00)
[2018-08-02] MEDS: PANTOPRAZOLE 40MG DR TABLET PO SCH (06:23)
[2018-08-02 08:00] VITALS: BP 144/43
[2018-08-02] MEDS: DIGOXIN 125MCG TABLET PO SCH (08:45)
[2018-08-02] MEDS: ALLOPURINOL 100 MG TABLET PO SCH (08:46)
[2018-08-02] MEDS: CARVEDILOL 6.25 MG TABLET PO SCH ×2 (08:46→20:51)
[2018-08-02] MEDS: ASPIRIN 81MG TABLET PO SCH (08:46)
[2018-08-02] MEDS: POTASSIUM CHLORIDE 10MEQ TABLET SR PO SCH (08:47)
[2018-08-02] MEDS: ISOSORBIDE MONONITRATE 30MG TABLET SR 24HR PO SCH (08:47)
[2018-08-02] MEDS: PREDNISONE 5MG TABLET PO SCH (08:47)
[2018-08-02] MEDS: FERROUS SULFATE 325MG TABLET PO SCH (08:48)
[2018-08-02] MEDS: FOLIC ACID 1MG TABLET PO SCH (08:48)
[2018-08-02] MEDS ORDERED: LISINOPRIL 10MG TABLET PO SCH (09:00)
[2018-08-02] MEDS ORDERED: FUROSEMIDE 40MG/4ML VIAL IVP SCH (09:00)
[2018-08-02] MEDS ORDERED: BISACODYL 10MG SUPP PR PRN (09:30)
[2018-08-02] MEDS: DEXT 5%/0.45% NACL 1000ML 1,000 ML IV SCH (11:10)
[2018-08-02 12:00] VITALS: BP 86/53
[2018-08-02] MEDS: MORPHINE SULFATE 4 MG/ML CPJ (NOT FOR IM USE) IV PRN ×2 (13:38→21:07)
[2018-08-02] MEDS: ONDANSETRON HCL 4MG/2ML INJ IV PRN ×2 (15:30→21:09)
[2018-08-02 16:00] VITALS: BP 95/59
[2018-08-02 20:00] VITALS: BP 88/58
[2018-08-02] MEDS ORDERED: ATORVASTATIN CALCIUM 10MG TABLET PO SCH (21:00)
[2018-08-03] VITALS: BP 95/62
[2018-08-03] MEDS: LORAZEPAM 1MG TABLET PO PRN (00:17)
[2018-08-03 04:00] VITALS: BP 88/54
[2018-08-03 06:42] LABS: BASOPHILS % 0.8 % (0.0-2.0); EOSINOPHILS % 4.2 % (0.0-5.0); HEMATOCRIT. 32.4 % (36.0-48.0); HEMOGLOBIN. 10.4 g/dL (12.0-16.0); MEAN CORPUSCULAR HEMOGLOBIN 27.1 pg (28.0-32.0); MEAN CORPUSCULAR VOLUME 84.5 fL (81.0-99.0); MEAN PLATELET VOLUME 8.1 fl (7.4-10.4); MONOCYTES % 4.6 % (2.0-8.0); NEUTROPHILS % 66.4 % (40.0-76.0); PLATELET 281 x1000/uL (130-400); RED BLOOD CELL COUNT 3.83 mill/uL (4.2-5.4); RED CELL DISTRIBUTION WIDTH 16.7 % (11.6-14.6)
[2018-08-03 08:00] VITALS: BP 80/42
[2018-08-03] MEDS: CARVEDILOL 6.25 MG TABLET PO SCH (09:00)
[2018-08-03] MEDS: FERROUS SULFATE 325MG TABLET PO SCH ×2 (09:00→09:03)
[2018-08-03] MEDS: FOLIC ACID 1MG TABLET PO SCH (09:00)
[2018-08-03] MEDS: ISOSORBIDE MONONITRATE 30MG TABLET SR 24HR PO SCH (09:00)
[2018-08-03] MEDS: PREDNISONE 5MG TABLET PO SCH (09:02)
[2018-08-03] MEDS: ASPIRIN 81MG TABLET PO SCH (09:03)
[2018-08-03] MEDS: POTASSIUM CHLORIDE 10MEQ TABLET SR PO SCH (09:03)
[2018-08-03] MEDS: DIGOXIN 125MCG TABLET PO SCH (09:03)
[2018-08-03] MEDS: ALLOPURINOL 100 MG TABLET PO SCH (09:03)
[2018-08-03] MEDS: DEXT 5%/0.45% NACL 1000ML 1,000 ML IV SCH (09:03)
[2018-08-03] MEDS: PANTOPRAZOLE 40MG DR TABLET PO SCH (09:08)
[2018-08-03 12:00] VITALS: BP 85/38
[2018-08-03] MEDS ORDERED: SODIUM CHLORIDE 0.9% 250 ML IV ONE (14:45)
[2018-08-03 15:18] VITALS: BP 97/30
[2018-08-03 16:00] VITALS: BP 97/30
[2018-08-03] MEDS: MORPHINE SULFATE 4 MG/ML CPJ (NOT FOR IM USE) IV PRN (16:18)
== END 2018-08-03 18:50 | disposition home health service (06) | DRG 247 ==
LOC: ER 19:11 → 5WST 21:06 → ENRESERV 22:18
PROVIDERS: ADMIT Internal Medicine; ATTEND Internal Medicine
DX: K56.7 Ileus, unspecified (principal); I11.0 Hypertensive heart disease with heart failure; I95.9 Hypotension, unspecified; I27.20 Pulmonary hypertension, unspecified; I50.32 Chronic diastolic (congestive) heart failure; G62.9 Polyneuropathy, unspecified; M34.9 Systemic sclerosis, unspecified; I42.9 Cardiomyopathy, unspecified; J45.909 Unspecified asthma, uncomplicated; D64.9 Anemia, unspecified; M79.7 Fibromyalgia; I25.10 Atherosclerotic heart disease of native coronary artery without angina pectoris; M19.90 Unspecified osteoarthritis, unspecified site; N28.9 Disorder of kidney and ureter, unspecified; S72.002D Fracture of unspecified part of neck of left femur, subsequent encounter for closed fracture with routine healing; X58.XXXD Exposure to other specified factors, subsequent encounter; Z79.52 Long term (current) use of systemic steroids; Z82.49 Family history of ischemic heart disease and other diseases of the circulatory system; Z87.01 Personal history of pneumonia (recurrent); Z95.810 Presence of automatic (implantable) cardiac defibrillator; Z88.8 Allergy status to other drugs, medicaments and biological substances; Z79.899 Other long term (current) drug therapy
CPT/HCPCS: 36415; 73502; 73552; 74018; 74022; 80048; 83880; 84484; 93005; 93306; 97162; 99285; J1940; J2270; J2405; J7030; J7050; J7512

== ENCOUNTER 2018-08-06 22:25 | Emergency (ER) | payer MEDICAID, OTHER ==
[~2018-08-06] VITALS: Ht 157.5 cm; Wt 43.0 kg
[~2018-08-06 22:25] MED LIST changes: -ALBU2.5V13 NEB; -DICL75TA5 MT; -GABA-531 MT; -ISOS30TA6 MT; -LISI10TA5 PO; -PROM5SYR MT; -SPIR25TA6 PO
[2018-08-06] MEDS ORDERED: SODIUM CHLORIDE 0.9% 1,000 ML IV ONE (22:45)
[2018-08-06 23:08] LABS: HEMATOCRIT 37.2 % (36.0-48.0); HEMOGLOBIN 11.7 g/dL (12.0-16.0); MEAN CORPUSCULAR HEMOGLOBIN 26.6 pg (28.0-32.0); MEAN CORPUSCULAR VOLUME 84.4 fL (81.0-99.0); PLATELET 279 x1000/uL (130-400); RED BLOOD CELL COUNT 4.41 mill/uL (4.2-5.4); RED CELL DISTRIBUTION WIDTH 16.9 % (11.6-14.6)
[2018-08-06 23:14] LABS: CHLORIDE 107 mEq/L (98-107)
[2018-08-07] MEDS ORDERED: DIPHENHYDRAMINE 25MG CAPSULE PO ONE
[2018-08-07] MEDS ORDERED: KETOROLAC 15MG/ML VIAL IV ONE
[2018-08-07] MEDS ORDERED: KETOROLAC 30MG/ML VIAL IV ONE (03:45)
[2018-08-07 04:51] VITALS: BP 110/71
== END 2018-08-07 04:52 | disposition short-term general hospital (02) ==
LOC: ER 22:25
DX: K56.609 Unspecified intestinal obstruction, unspecified as to partial versus complete obstruction (principal); J45.909 Unspecified asthma, uncomplicated; N28.9 Disorder of kidney and ureter, unspecified; M34.9 Systemic sclerosis, unspecified; Z98.890 Other specified postprocedural states; Z79.82 Long term (current) use of aspirin; Z79.899 Other long term (current) drug therapy; Z88.6 Allergy status to analgesic agent; Z88.8 Allergy status to other drugs, medicaments and biological substances
CPT/HCPCS: 36415; 74021; 80053; 85027; 96361; 96374; 96376; 99285; J1885; J7030; Q0163; Z7610

== ENCOUNTER 2018-08-31 20:24 | Emergency (ER) | payer MEDICAID, OTHER ==
[~2018-08-31] VITALS: Ht 152.4 cm; Wt 43.0 kg
[2018-08-31] MEDS ORDERED: SODIUM CHLORIDE 0.9% 1,000 ML IV ONE (21:07)
[2018-08-31] MEDS ORDERED: MORPHINE SULFATE 4 MG/ML CPJ (NOT FOR IM USE) IV STA (21:07)
[2018-08-31] MEDS ORDERED: PROCHLORPERAZINE 10MG/2ML VIAL IV ONE (21:15)
[2018-08-31] MEDS ORDERED: DIPHENHYDRAMINE 50MG/ML VIAL IV ONE (22:30)
[2018-08-31 22:43] LABS: CLARITY URINE CLEAR (CLEAR); COLOR URINE YELLOW (YELLOW); KETONES URINE NEGATIVE (NEGATIVE); LEUKOCYTE ESTERASE URINE NEGATIVE (NEGATIVE); NITRITE URINE NEGATIVE (NEGATIVE); OCCULT BLOOD URINE NEGATIVE (NEGATIVE); PROTEIN URINE NEGATIVE (NEGATIVE); UROBILINOGEN URINE 0.2 E.U./dL (0.2-1.0)
[2018-08-31 23:55] LABS: BASOPHILS % 0.6 % (0.0-2.0); EOSINOPHILS % 7.7 % (0.0-5.0); HEMATOCRIT. 27.9 % (36.0-48.0); HEMOGLOBIN. 9.1 g/dL (12.0-16.0); LYMPHOCYTES % 21.2 % (20.0-50.0); MEAN CORPUSCULAR HEMOGLOBIN 27.2 pg (28.0-32.0); MEAN CORPUSCULAR VOLUME 83.8 fL (81.0-99.0); MEAN PLATELET VOLUME 7.6 fl (7.4-10.4); MONOCYTES % 4.6 % (2.0-8.0); NEUTROPHILS % 65.9 % (40.0-76.0); PLATELET 215 x1000/uL (130-400); RED BLOOD CELL COUNT 3.32 mill/uL (4.2-5.4); RED CELL DISTRIBUTION WIDTH 17.1 % (11.6-14.6)
[2018-09-01 00:01] LABS: CHLORIDE 111 mEq/L (98-107)
[2018-09-01 00:05] LABS: INR 1.1
[2018-09-01 00:55] VITALS: BP 112/67
== END 2018-09-01 01:08 | disposition short-term general hospital (02) ==
LOC: ER 20:24 → CANBEDREQ 09-01 01:45
DX: M34.9 Systemic sclerosis, unspecified (principal); E86.0 Dehydration; G89.29 Other chronic pain; R10.13 Epigastric pain; M25.552 Pain in left hip; K21.9 Gastro-esophageal reflux disease without esophagitis; I42.9 Cardiomyopathy, unspecified; R53.1 Weakness; Z88.6 Allergy status to analgesic agent; Z79.82 Long term (current) use of aspirin; Z79.899 Other long term (current) drug therapy; Z95.0 Presence of cardiac pacemaker
CPT/HCPCS: 36415; 71045; 74176; 80053; 81003; 81025; 83605; 85025; 85610; 93005; 96361; 96374; 96375; 99285; J0780; J1200; J2270; J7030; Z7610

== ENCOUNTER 2018-09-09 17:12 | Emergency (ER) | payer OTHER ==
[~2018-09-09] VITALS: Ht 157.5 cm; Wt 41.0 kg
[~2018-09-09 17:12] MED LIST changes: -ASPI-1159 PO; +ASPI-1393 PO
[2018-09-09] MEDS ORDERED: MORPHINE SULFATE 4 MG/ML CPJ (NOT FOR IM USE) IV ONE ×2 (18:00→22:15)
[2018-09-09] MEDS ORDERED: ALBUTEROL (0.5%) 2.5MG/0.5ML NEB HHN ONE (18:00)
[2018-09-09] MEDS ORDERED: ONDANSETRON HCL 4MG/2ML INJ IV ONE (22:15)
[2018-09-09 23:30] VITALS: BP 137/70
== END 2018-09-09 23:30 | disposition home or self-care (01) ==
LOC: ER 17:12
DX: S70.01XA Contusion of right hip, initial encounter (principal); S40.011A Contusion of right shoulder, initial encounter; S10.93XA Contusion of unspecified part of neck, initial encounter; S50.312A Abrasion of left elbow, initial encounter; S50.311A Abrasion of right elbow, initial encounter; M84.459A Pathological fracture, hip, unspecified, initial encounter for fracture; J45.909 Unspecified asthma, uncomplicated; I25.10 Atherosclerotic heart disease of native coronary artery without angina pectoris; K21.9 Gastro-esophageal reflux disease without esophagitis; M34.9 Systemic sclerosis, unspecified; I42.9 Cardiomyopathy, unspecified; I11.9 Hypertensive heart disease without heart failure; Z98.890 Other specified postprocedural states; Z95.0 Presence of cardiac pacemaker; Z88.6 Allergy status to analgesic agent; Z88.8 Allergy status to other drugs, medicaments and biological substances; Z79.899 Other long term (current) drug therapy; W01.0XXA Fall on same level from slipping, tripping and stumbling without subsequent striking against object, initial encounter; Y93.89 Activity, other specified; Y92.89 Other specified places as the place of occurrence of the external cause; Y99.8 Other external cause status
CPT/HCPCS: 70450; 71045; 72125; 72192; 73030; 73080; 73700; 81025; 96374; 96375; 96376; 99284; J2270; J2405

== ENCOUNTER 2018-09-19 21:11 | Emergency (ER) | payer OTHER ==
[~2018-09-19] VITALS: Ht 157.5 cm; Wt 41.0 kg
[2018-09-19] MEDS ORDERED: HYDROCODONE/ACETAMINOPHEN 5/325MG TABLET PO STA (22:36)
[2018-09-19 23:02] LABS: CLARITY URINE CLEAR (CLEAR); COLOR URINE YELLOW (YELLOW); KETONES URINE NEGATIVE (NEGATIVE); LEUKOCYTE ESTERASE URINE 2+ (NEGATIVE); NITRITE URINE NEGATIVE (NEGATIVE); OCCULT BLOOD URINE NEGATIVE (NEGATIVE); PROTEIN URINE NEGATIVE (NEGATIVE); UROBILINOGEN URINE 0.2 E.U./dL (0.2-1.0)
[2018-09-20] MEDS ORDERED: HYDROCODONE/ACETAMINOPHEN 5/325MG TABLET PO STA (00:44)
[2018-09-20 01:16] VITALS: BP 116/61
== END 2018-09-20 01:21 | disposition home or self-care (01) ==
LOC: ER 21:32
DX: S30.0XXA Contusion of lower back and pelvis, initial encounter (principal); N39.0 Urinary tract infection, site not specified; W18.39XA Other fall on same level, initial encounter; Y93.89 Activity, other specified; Y92.89 Other specified places as the place of occurrence of the external cause; Y99.8 Other external cause status; J45.909 Unspecified asthma, uncomplicated; K21.9 Gastro-esophageal reflux disease without esophagitis; I10 Essential (primary) hypertension; M79.7 Fibromyalgia; Z95.0 Presence of cardiac pacemaker; Z98.890 Other specified postprocedural states; Z79.82 Long term (current) use of aspirin; Z79.899 Other long term (current) drug therapy; Z88.8 Allergy status to other drugs, medicaments and biological substances; Z88.6 Allergy status to analgesic agent
CPT/HCPCS: 72100; 73522; 81025; 99284

== ENCOUNTER 2018-10-05 17:04 | Emergency (ER) | payer OTHER ==
[~2018-10-05] VITALS: Ht 167.6 cm; Wt 50.0 kg
[2018-10-05] MEDS ORDERED: MORPHINE SULFATE 4 MG/ML CPJ (NOT FOR IM USE) IV STA (18:13)
[2018-10-05] MEDS ORDERED: ONDANSETRON HCL 4MG/2ML INJ IV STA (18:13)
[2018-10-05] MEDS ORDERED: SODIUM CHLORIDE 0.9% 1,000 ML IV ONE (18:13)
[2018-10-05] MEDS ORDERED: DIPHENHYDRAMINE 50MG/ML VIAL IV ONE (18:15)
[2018-10-05 18:50] LABS: CLARITY URINE CLOUDY (CLEAR); COLOR URINE YELLOW (YELLOW); KETONES URINE NEGATIVE (NEGATIVE); LEUKOCYTE ESTERASE URINE TRACE (NEGATIVE); NITRITE URINE NEGATIVE (NEGATIVE); OCCULT BLOOD URINE NEGATIVE (NEGATIVE); PROTEIN URINE NEGATIVE (NEGATIVE); SPECIFIC GRAVITY URINE 1.012 (1.005-1.030); UROBILINOGEN URINE 0.2 E.U./dL (0.2-1.0)
[2018-10-05 19:11] LABS: *AMPHETAMINES SCREEN URINE NEGATIVE (NEGATIVE)
[2018-10-05 19:12] LABS: *BARBITURATES SCREEN URINE NEGATIVE (NEGATIVE); *BENZODIAZEPINES SCREEN URINE NEGATIVE (NEGATIVE); *COCAINE SCREEN URINE NEGATIVE (NEGATIVE); CANNABINOID URINE SCREEN NEGATIVE (NEGATIVE); METHADONE URINE SCREEN NEGATIVE (NEGATIVE); OPIATES URINE SCREEN NEGATIVE (NEGATIVE); PHENCYCLIDINE URINE SCREEN NEGATIVE (NEGATIVE)
[2018-10-05 19:27] LABS: BASOPHILS % 1.4 % (0.0-2.0); EOSINOPHILS % 5.5 % (0.0-5.0); HEMATOCRIT. 25.8 % (36.0-48.0); HEMOGLOBIN. 8.3 g/dL (12.0-16.0); LYMPHOCYTES % 18.6 % (20.0-50.0); MEAN CORPUSCULAR HEMOGLOBIN 26.3 pg (28.0-32.0); MEAN CORPUSCULAR VOLUME 81.8 fL (81.0-99.0); MEAN PLATELET VOLUME 7.7 fl (7.4-10.4); MONOCYTES % 5.3 % (2.0-8.0); NEUTROPHILS % 69.2 % (40.0-76.0); PLATELET 351 x1000/uL (130-400); RED BLOOD CELL COUNT 3.15 mill/uL (4.2-5.4); RED CELL DISTRIBUTION WIDTH 18.1 % (11.6-14.6)
[2018-10-05 19:31] LABS: CHLORIDE 103 mEq/L (98-107)
[2018-10-05 19:35] LABS: ETHANOL BLOOD < 10 mg/dL; PARTIAL THROMBOPLASTIN TIME 30.2 sec (23.4-31.0); PROTHROMBIN TIME 10.2 sec (9.6-11.0)
[2018-10-05 19:49] LABS: HCG SCREEN NEGATIVE
[2018-10-05] MEDS ORDERED: CEFTRIAXONE 1 G PREMIX 50 ML IV ONE (20:15)
[2018-10-05] MEDS ORDERED: MORPHINE SULFATE 4 MG/ML CPJ (NOT FOR IM USE) IV ONE (22:15)
[2018-10-05] MEDS ORDERED: ONDANSETRON HCL 4MG/2ML INJ IV ONE (22:15)
[2018-10-05 22:17] VITALS: BP 140/76
== END 2018-10-05 23:17 | disposition short-term general hospital (02) ==
LOC: ER 17:04 → CANBEDREQ 23:47
DX: N12 Tubulo-interstitial nephritis, not specified as acute or chronic (principal); K56.7 Ileus, unspecified; M19.90 Unspecified osteoarthritis, unspecified site; D63.1 Anemia in chronic kidney disease; K21.9 Gastro-esophageal reflux disease without esophagitis; I12.9 Hypertensive chronic kidney disease with stage 1 through stage 4 chronic kidney disease, or unspecified chronic kidney disease; N18.9 Chronic kidney disease, unspecified; J45.909 Unspecified asthma, uncomplicated; Z95.0 Presence of cardiac pacemaker; Z79.82 Long term (current) use of aspirin; Z88.8 Allergy status to other drugs, medicaments and biological substances
CPT/HCPCS: 36415; 71045; 74176; 80053; 80305; 80320; 81003; 81025; 83605; 83880; 84484; 84703; 85025; 85610; 85730; 87040; 87086; 93005; 96365; 96375; 96376; 99285; J0696; J1200; J2270; J2405; J7030; G0480

== ENCOUNTER 2018-11-21 22:31 | Emergency (ER) | payer OTHER ==
[~2018-11-21] VITALS: Ht 157.5 cm; Wt 45.0 kg
[2018-11-22 00:20] LABS: CHLORIDE 107 mEq/L (98-107)
[2018-11-22 00:27] LABS: HCG SCREEN NEGATIVE
[2018-11-22] MEDS ORDERED: HYDROCODONE/ACETAMINOPHEN 5/325MG TABLET PO SCH (00:35)
[2018-11-22 00:43] VITALS: BP 141/74
[2018-11-22 00:43] LABS: EOSINOPHILS % 2.4 % (0.0-5.0); HEMATOCRIT. 28.9 % (36.0-48.0); HEMOGLOBIN. 8.7 g/dL (12.0-16.0); LYMPHOCYTES % 17.5 % (20.0-50.0); MEAN CORPUSCULAR HEMOGLOBIN 22.4 pg (28.0-32.0); MEAN CORPUSCULAR VOLUME 74.3 fL (81.0-99.0); MEAN PLATELET VOLUME 8.5 fl (7.4-10.4); MONOCYTES % 4.7 % (2.0-8.0); NEUTROPHILS % 74.4 % (40.0-76.0); PLATELET 247 x1000/uL (130-400); RED BLOOD CELL COUNT 3.89 mill/uL (4.2-5.4); RED CELL DISTRIBUTION WIDTH 17.5 % (11.6-14.6)
[2018-11-22] MEDS ORDERED: FUROSEMIDE 40MG/4ML VIAL IVP SCH (00:50)
[2018-11-22] MEDS ORDERED: ASPIRIN 81MG TABLET PO SCH (00:50)
== END 2018-11-22 01:58 | disposition short-term general hospital (02) ==
LOC: ER 22:31 → CANBEDREQ 11-22 07:37
DX: I11.0 Hypertensive heart disease with heart failure (principal); I50.9 Heart failure, unspecified; J45.909 Unspecified asthma, uncomplicated; K21.9 Gastro-esophageal reflux disease without esophagitis; M79.7 Fibromyalgia; M19.90 Unspecified osteoarthritis, unspecified site; Z95.0 Presence of cardiac pacemaker; Z79.899 Other long term (current) drug therapy; Z88.8 Allergy status to other drugs, medicaments and biological substances; Z88.6 Allergy status to analgesic agent
CPT/HCPCS: 36415; 71045; 73502; 80053; 83880; 84484; 84703; 85025; 93005; 96374; 99285; J1940; Z7610

== ENCOUNTER 2019-05-10 20:58 | Inpatient (IN) | payer OTHER ==
[~2019-05-10] VITALS: Ht 157.5 cm; Wt 47.6 kg
[~2019-05-10 20:58] MED LIST changes: -ASPI-1393 PO; +ASPI-1497 PO; -SIMV10TA6 MT; +SIMV10TA97 MT
[2019-05-10] MEDS ORDERED: ONDANSETRON HCL 4MG/2ML INJ IV STA (23:06)
[2019-05-10] MEDS ORDERED: MORPHINE SULFATE 4 MG/ML CPJ (NOT FOR IM USE) IV STA (23:06)
[2019-05-11 00:14] LABS: BASOPHILS % 0.5 % (0.0-2.0); HEMATOCRIT. 40.3 % (36.0-48.0); HEMOGLOBIN. 12.5 g/dL (12.0-16.0); LYMPHOCYTES % 19.2 % (20.0-50.0); MEAN CORPUSCULAR HEMOGLOBIN 23.9 pg (28.0-32.0); MEAN CORPUSCULAR VOLUME 76.9 fL (81.0-99.0); MEAN PLATELET VOLUME 8.2 fl (7.4-10.4); MONOCYTES % 4.1 % (2.0-8.0); NEUTROPHILS % 73.2 % (40.0-76.0); PLATELET 203 x1000/uL (130-400); RED BLOOD CELL COUNT 5.24 mill/uL (4.2-5.4); RED CELL DISTRIBUTION WIDTH 18.7 % (11.6-14.6)
[2019-05-11 00:23] LABS: CHLORIDE 103 mEq/L (98-107)
[2019-05-11 00:25] LABS: INR 0.9; PARTIAL THROMBOPLASTIN TIME 26.5 sec (23.4-31.0); PROTHROMBIN TIME 9.7 sec (9.6-11.0)
[2019-05-11 00:26] LABS: HCG SCREEN NEGATIVE
[2019-05-11 00:28] LABS: ETHANOL BLOOD < 10 mg/dL
[2019-05-11 00:39] LABS: CLARITY URINE CLEAR (CLEAR); COLOR URINE YELLOW (YELLOW); KETONES URINE NEGATIVE (NEGATIVE); LEUKOCYTE ESTERASE URINE TRACE (NEGATIVE); NITRITE URINE NEGATIVE (NEGATIVE); OCCULT BLOOD URINE NEGATIVE (NEGATIVE); PH URINE 7.5 (4.5-8.0); PROTEIN URINE NEGATIVE (NEGATIVE); SPECIFIC GRAVITY URINE 1.015 (1.005-1.030); UROBILINOGEN URINE 0.2 E.U./dL (0.2-1.0)
[2019-05-11 01:02] LABS: *AMPHETAMINES SCREEN URINE NEGATIVE (NEGATIVE); *BARBITURATES SCREEN URINE NEGATIVE (NEGATIVE); *BENZODIAZEPINES SCREEN URINE NEGATIVE (NEGATIVE); *COCAINE SCREEN URINE NEGATIVE (NEGATIVE); METHADONE URINE SCREEN NEGATIVE (NEGATIVE); OPIATES URINE SCREEN NEGATIVE (NEGATIVE)
[2019-05-11 01:03] LABS: CANNABINOID URINE SCREEN NEGATIVE (NEGATIVE); PHENCYCLIDINE URINE SCREEN NEGATIVE (NEGATIVE)
[2019-05-11] MEDS ORDERED: ONDANSETRON HCL 4MG/2ML INJ IV ONE (01:45)
[2019-05-11] MEDS ORDERED: DOCUSATE SODIUM 100MG CAPSULE PO PRN (07:00)
[2019-05-11] MEDS ORDERED: GUAIFENESIN 200MG/10ML SUGAR FREE UDC PO PRN (07:00)
[2019-05-11] MEDS ORDERED: MAGNESIUM/ALUMINUM HYDROXIDE/SIMETHICONE 30ML UDC PO PRN (07:00)
[2019-05-11] MEDS ORDERED: ACETAMINOPHEN 325MG TABLET PO PRN (07:00)
[2019-05-11] MEDS ORDERED: DIPHENHYDRAMINE 50MG/ML VIAL IV PRN (07:00)
[2019-05-11] MEDS ORDERED: CLONIDINE 0.1MG TABLET PO PRN (07:00)
[2019-05-11] MEDS ORDERED: IPRATROPIUM/ALBUTEROL 0.5-3(2.5)MG/3ML NEB NEB PRN (07:00)
[2019-05-11] MEDS ORDERED: LORAZEPAM 2MG/ML CPJ IV PRN (07:00)
[2019-05-11] MEDS ORDERED: NA PHOS,M-B/NA PHOS,DI-BA ENEMA 118ML PR PRN (07:00)
[2019-05-11] MEDS ORDERED: HYDROCODONE/ACETAMINOPHEN 10/325MG TABLET PO PRN (07:00)
[2019-05-11] MEDS: MORPHINE SULFATE 2 MG/ML CPJ (NOT FOR IM USE) IV PRN ×3 (07:05→22:35)
[2019-05-11 10:00] VITALS: BP 132/82
[2019-05-11] MEDS: ONDANSETRON HCL 4MG/2ML INJ IV PRN ×2 (11:18→19:04)
[2019-05-11 12:00] VITALS: BP 121/72
[2019-05-11 13:32] LABS: CHLORIDE 106 mEq/L (98-107)
[2019-05-11 16:00] VITALS: BP 125/84
[2019-05-11 20:00] VITALS: BP 125/82
[2019-05-12] VITALS: BP 120/70
[2019-05-12 04:00] VITALS: BP 119/70
[2019-05-12 06:45] LABS: BASOPHILS % 0.7 % (0.0-2.0); HEMATOCRIT. 35.1 % (36.0-48.0); MEAN CORPUSCULAR HEMOGLOBIN 24.2 pg (28.0-32.0); MEAN PLATELET VOLUME 8.2 fl (7.4-10.4); MONOCYTES % 5.7 % (2.0-8.0); NEUTROPHILS % 65.6 % (40.0-76.0); PLATELET 186 x1000/uL (130-400); RED BLOOD CELL COUNT 4.55 mill/uL (4.2-5.4); RED CELL DISTRIBUTION WIDTH 18.7 % (11.6-14.6)
[2019-05-12 08:00] VITALS: BP 112/71
[2019-05-12 08:23] LABS: CHLORIDE 106 mEq/L (98-107)
[2019-05-12 08:31] LABS: LDL CHOLESTEROL 65 mg/dL (5-100)
[2019-05-12 08:33] LABS: HDL CHOLESTEROL 37 mg/dL (40-59)
[2019-05-12] MEDS ORDERED: PNEUMOCOCCAL 23-VAL P-SAC VAC 0.5 ML IM ONE (09:00)
[2019-05-12] MEDS ORDERED: LISINOPRIL 2.5MG TABLET PO SCH (10:45)
[2019-05-12] MEDS ORDERED: CARVEDILOL 3.125 MG TABLET PO SCH (11:00)
[2019-05-12] MEDS: MORPHINE SULFATE 2 MG/ML CPJ (NOT FOR IM USE) IV PRN (12:13)
[2019-05-12 15:12] VITALS: BP 115/76
== END 2019-05-12 15:50 | disposition home or self-care (01) | DRG 243 ==
LOC: ER 20:58 → 7WST 05-11 02:41 → EDBEDREQ 05-11 02:44 → EDBEDREQDT 05-11 02:44 → EDBEDREQTM 05-11 02:44 → CANRESERV 05-11 08:00 → ENRESERV 05-11 08:00
PROVIDERS: ADMIT Internal Medicine; ATTEND Internal Medicine
DX: K21.9 Gastro-esophageal reflux disease without esophagitis (principal); J84.9 Interstitial pulmonary disease, unspecified; I42.0 Dilated cardiomyopathy; I13.0 Hypertensive heart and chronic kidney disease with heart failure and stage 1 through stage 4 chronic kidney disease, or unspecified chronic kidney disease; I50.9 Heart failure, unspecified; M34.9 Systemic sclerosis, unspecified; E44.1 Mild protein-calorie malnutrition; R07.9 Chest pain, unspecified; D64.9 Anemia, unspecified; J45.909 Unspecified asthma, uncomplicated; M19.90 Unspecified osteoarthritis, unspecified site; M79.7 Fibromyalgia; N18.9 Chronic kidney disease, unspecified; Z79.82 Long term (current) use of aspirin; Z79.899 Other long term (current) drug therapy; Z82.49 Family history of ischemic heart disease and other diseases of the circulatory system; Z88.8 Allergy status to other drugs, medicaments and biological substances; Z68.1 Body mass index [BMI] 19.9 or less, adult; Z95.810 Presence of automatic (implantable) cardiac defibrillator
CPT/HCPCS: 36415; 71045; 80048; 80053; 80061; 80305; 80320; 81003; 83880; 84439; 84443; 84484; 84703; 85025; 93005; 93306; 96374; 96375; 99285; J2060; J2270; J2405; G0480

== ENCOUNTER 2019-12-26 20:43 | Emergency (ER) | payer MEDICAID, OTHER ==
[~2019-12-26] VITALS: Ht 162.6 cm; Wt 50.0 kg
[2019-12-27] MEDS ORDERED: MORPHINE SULFATE 4 MG/ML CPJ (NOT FOR IM USE) IV STA (01:31)
[2019-12-27] MEDS ORDERED: FAMOTIDINE 20MG/2ML VIAL IV STA (01:31)
[2019-12-27] MEDS ORDERED: ONDANSETRON HCL 4MG/2ML INJ IV STA (01:31)
[2019-12-27] MEDS ORDERED: SODIUM CHLORIDE 0.9% 1,000 ML IV ONE (01:31)
[2019-12-27 01:58] LABS: CLARITY URINE CLEAR (CLEAR); COLOR URINE YELLOW (YELLOW); KETONES URINE NEGATIVE (NEGATIVE); LEUKOCYTE ESTERASE URINE 1+ (NEGATIVE); NITRITE URINE NEGATIVE (NEGATIVE); OCCULT BLOOD URINE NEGATIVE (NEGATIVE); PROTEIN URINE NEGATIVE (NEGATIVE); SPECIFIC GRAVITY URINE 1.015 (1.005-1.030); UROBILINOGEN URINE 0.2 E.U./dL (0.2-1.0)
[2019-12-27 02:09] LABS: HEMATOCRIT. 34.7 % (36.0-48.0); HEMOGLOBIN. 11.1 g/dL (12.0-16.0); MEAN CORPUSCULAR HEMOGLOBIN 25.8 pg (28.0-32.0); MEAN CORPUSCULAR VOLUME 80.7 fL (81.0-99.0); MEAN PLATELET VOLUME 8.2 fl (7.4-10.4); PLATELET 226 x1000/uL (130-400); RED CELL DISTRIBUTION WIDTH 17.7 % (11.6-14.6)
[2019-12-27 02:16] LABS: CHLORIDE 106 mEq/L (98-107)
[2019-12-27] MEDS ORDERED: IOHEXOL-300 100 ML BOTTLE ONE (04:20)
[2019-12-27 05:00] LABS: PLATELET ESTIMATE NORMAL
[2019-12-27] MEDS ORDERED: MORPHINE SULFATE 4 MG/ML CPJ (NOT FOR IM USE) IV ONE (06:30)
[2019-12-27 07:04] VITALS: BP 159/86
== END 2019-12-27 07:10 | disposition short-term general hospital (02) ==
LOC: ER 20:43 → CANBEDREQ 12-27 08:53
DX: K85.90 Acute pancreatitis without necrosis or infection, unspecified (principal); M34.9 Systemic sclerosis, unspecified; K21.9 Gastro-esophageal reflux disease without esophagitis; I10 Essential (primary) hypertension; J45.909 Unspecified asthma, uncomplicated; M19.90 Unspecified osteoarthritis, unspecified site; M79.7 Fibromyalgia; Z95.0 Presence of cardiac pacemaker; Z88.8 Allergy status to other drugs, medicaments and biological substances
CPT/HCPCS: 36415; 71045; 74177; 76705; 80053; 81003; 81025; 83605; 83690; 85025; 93005; 96361; 96374; 96375; 96376; 99285; J2270; J2405; J3490; J7030; Q9967

== ENCOUNTER 2020-07-27 22:26 | Emergency (ER) | payer MEDICAID, OTHER ==
[~2020-07-27] VITALS: Ht 162.6 cm; Wt 52.0 kg
[~2020-07-27 22:26] MED LIST changes: -PANT40TA4 PO; +PANT40TA51 PO
[2020-07-28 01:12] LABS: BASOPHILS % 0.4 % (0.0-2.0); EOSINOPHILS % 3.7 % (0.0-5.0); HEMATOCRIT. 39.7 % (36.0-48.0); HEMOGLOBIN. 12.9 g/dL (12.0-16.0); LYMPHOCYTES % 17.5 % (20.0-50.0); MEAN CORPUSCULAR HEMOGLOBIN 27.5 pg (28.0-32.0); MEAN CORPUSCULAR VOLUME 84.7 fL (81.0-99.0); NEUTROPHILS % 74.4 % (40.0-76.0); PLATELET 183 x1000/uL (130-400); RED BLOOD CELL COUNT 4.69 mill/uL (4.2-5.4); RED CELL DISTRIBUTION WIDTH 16.3 % (11.6-14.6)
[2020-07-28 01:29] LABS: CHLORIDE 105 mEq/L (98-107)
[2020-07-28 02:26] LABS: CLARITY URINE CLEAR (CLEAR); COLOR URINE YELLOW (YELLOW); KETONES URINE NEGATIVE (NEGATIVE); LEUKOCYTE ESTERASE URINE 1+ (NEGATIVE); NITRITE URINE NEGATIVE (NEGATIVE); OCCULT BLOOD URINE NEGATIVE (NEGATIVE); PH URINE 6.5 (4.5-8.0); PROTEIN URINE 1+ (NEGATIVE); SPECIFIC GRAVITY URINE 1.017 (1.005-1.030)
[2020-07-28] MEDS ORDERED: HYDROMORPHONE HCL/PF 2MG/ML CPJ IV ONE (02:45)
[2020-07-28] MEDS ORDERED: ONDANSETRON HCL 4MG/2ML INJ IV ONE (03:00)
[2020-07-28] MEDS ORDERED: IOHEXOL-350 100 ML BOTTLE ONE (03:01)
[2020-07-28] MEDS ORDERED: HYDROMORPHONE HCL/PF 2MG/ML CPJ IV SCH (11:15)
[2020-07-28 12:19] VITALS: BP 149/91
== END 2020-07-28 12:25 | disposition short-term general hospital (02) ==
LOC: ER 22:26 → CANBEDREQ 07-28 09:56 → ER 07-28 12:25
DX: J45.909 Unspecified asthma, uncomplicated (principal); I10 Essential (primary) hypertension; Z95.0 Presence of cardiac pacemaker; Z98.890 Other specified postprocedural states; Z79.82 Long term (current) use of aspirin; Z79.899 Other long term (current) drug therapy
CPT/HCPCS: 36415; 71045; 74174; 74176; 76705; 80053; 81003; 83605; 83690; 83880; 84484; 85025; 85379; 93005; 96374; 96375; 96376; 99285; J1170; J2405; Q9967

== ENCOUNTER 2020-11-25 20:48 | Emergency (ER) | payer MEDICAID, OTHER ==
[~2020-11-25] VITALS: Ht 157.5 cm; Wt 46.0 kg
[2020-11-25] MEDS ORDERED: MORPHINE SULFATE 4 MG/ML CPJ (NOT FOR IM USE) IV STA (23:18)
[2020-11-25] MEDS ORDERED: ONDANSETRON HCL 4MG/2ML INJ IV STA (23:18)
[2020-11-25 23:52] LABS: BASOPHILS % 0.9 % (0.0-2.0); CLARITY URINE CLEAR (CLEAR); COLOR URINE YELLOW (YELLOW); EOSINOPHILS % 5.3 % (0.0-5.0); HEMATOCRIT. 40.8 % (36.0-48.0); HEMOGLOBIN. 13.6 g/dL (12.0-16.0); KETONES URINE 1+ (NEGATIVE); LEUKOCYTE ESTERASE URINE 1+ (NEGATIVE); LYMPHOCYTES % 24.7 % (20.0-50.0); MEAN CORPUSCULAR HEMOGLOBIN 28.7 pg (28.0-32.0); MEAN CORPUSCULAR VOLUME 86.1 fL (81.0-99.0); MEAN PLATELET VOLUME 8.2 fl (7.4-10.4); MONOCYTES % 3.7 % (2.0-8.0); NEUTROPHILS % 65.4 % (40.0-76.0); NITRITE URINE NEGATIVE (NEGATIVE); OCCULT BLOOD URINE NEGATIVE (NEGATIVE); PLATELET 174 x1000/uL (130-400); PROTEIN URINE TRACE (NEGATIVE); RED BLOOD CELL COUNT 4.74 mill/uL (4.2-5.4); RED CELL DISTRIBUTION WIDTH 14.6 % (11.6-14.6); SPECIFIC GRAVITY URINE 1.022 (1.005-1.030); UROBILINOGEN URINE 0.2 E.U./dL (0.2-1.0)
[2020-11-26] LABS: CHLORIDE 113 mEq/L (98-107)
[2020-11-26 00:01] LABS: PROTHROMBIN TIME 10.7 sec (9.6-11.0)
[2020-11-26 00:06] LABS: HCG SCREEN NEGATIVE
[2020-11-26] MEDS ORDERED: CEFTRIAXONE 1 G PREMIX 50 ML IV ONE (01:45)
[2020-11-26 03:27] VITALS: BP 159/92
== END 2020-11-26 03:36 | disposition short-term general hospital (02) ==
LOC: ER 20:48
DX: R10.33 Periumbilical pain (principal); K85.90 Acute pancreatitis without necrosis or infection, unspecified; J90 Pleural effusion, not elsewhere classified; J45.909 Unspecified asthma, uncomplicated; K21.9 Gastro-esophageal reflux disease without esophagitis; I10 Essential (primary) hypertension; Z95.0 Presence of cardiac pacemaker; M79.7 Fibromyalgia; Z79.82 Long term (current) use of aspirin; Z79.899 Other long term (current) drug therapy; Z20.822 Contact with and (suspected) exposure to COVID-19
CPT/HCPCS: 36415; 74176; 80053; 81003; 83690; 84703; 85025; 85610; 87426; 93005; 96365; 96375; 99285; J0696; J2270; J2405

== ENCOUNTER 2021-09-25 23:52 | Emergency (ER) | payer MEDICAID, OTHER ==
[~2021-09-25] VITALS: Ht 165.1 cm; Wt 50.0 kg
[2021-09-26] MEDS ORDERED: OXYCODONE HCL/ACETAMINOPHEN 5/325MG TABLET PO ONE (05:45)
[2021-09-26] MEDS ORDERED: T3 PO (07:35)
[2021-09-26 11:47] VITALS: BP 155/89
== END 2021-09-26 12:27 | disposition home or self-care (01) ==
LOC: ER 23:52
DX: M79.18 Myalgia, other site (principal); J45.909 Unspecified asthma, uncomplicated; M79.7 Fibromyalgia; I10 Essential (primary) hypertension; I42.9 Cardiomyopathy, unspecified; K21.9 Gastro-esophageal reflux disease without esophagitis; W01.0XXA Fall on same level from slipping, tripping and stumbling without subsequent striking against object, initial encounter; Y93.89 Activity, other specified; Y92.9 Unspecified place or not applicable; Z95.0 Presence of cardiac pacemaker; Z88.6 Allergy status to analgesic agent; Z79.82 Long term (current) use of aspirin
CPT/HCPCS: 29505; 72170; 73560; 99284; L1830

== ENCOUNTER 2024-01-01 01:17 | Inpatient (IN) | payer MEDICAID, OTHER ==
[~2024-01-01] VITALS: Ht 165.1 cm; Wt 38.2 kg
[~2024-01-01 01:17] MED LIST changes: -POTA10CA42 PO; +POTA10CA93 PO; -PRED-276 MT; +PRED-855 MT; +T3 PO
[2024-01-01 02:33] LABS: BASOPHILS % 1.2 % (0.0-2.0); HEMATOCRIT. 44.6 % (36.0-48.0); HEMOGLOBIN. 14.2 g/dL (12.0-16.0); LYMPHOCYTES % 12.4 % (20.0-50.0); MEAN CORPUSCULAR HEMOGLOBIN 27.3 pg (28.0-32.0); MEAN CORPUSCULAR HGB CONC 31.8 g/dL (31.0-37.0); MEAN CORPUSCULAR VOLUME 85.7 fL (81.0-99.0); MEAN PLATELET VOLUME 8.7 fl (7.4-10.4); NEUTROPHILS % 80.4 % (40.0-76.0); PLATELET 160 x1000/uL (130-400); RED BLOOD CELL COUNT 5.21 mill/uL (4.2-5.4)
[2024-01-01 03:01] LABS: HCG SCREEN NEGATIVE
[2024-01-01 03:02] LABS: TROPONIN I HIGH SENSITIVITY 35 ng/L (3.0-34)
[2024-01-01 03:04] LABS: CARBON DIOXIDE 36 mEq/L (21-32); CHLORIDE 94 mEq/L (98-107); POTASSIUM 4.6 mEq/L (3.5-5.1); SODIUM 134 mEq/L (136-145)
[2024-01-01 03:05] LABS: CALCIUM 9.5 mg/dL (8.7-10.4)
[2024-01-01 03:10] LABS: CREATININE 0.9 mg/dL (0.6-1.0); GLUCOSE 109 mg/dL (70-105); UREA NITROGEN BLOOD 19 mg/dL (9-23)
[2024-01-01 03:14] LABS: ETHANOL BLOOD < 10 mg/dL (<10)
[2024-01-01] MEDS: HYDRALAZINE 20MG/ML VIAL IV PRN (03:45)
[2024-01-01] MEDS: FUROSEMIDE 40MG/4ML VIAL IVP NR ×2 (03:46→09:54)
[2024-01-01 04:30] LABS: INR 0.9; PARTIAL THROMBOPLASTIN TIME 26.7 sec (23.4-31.0); PROTHROMBIN TIME 10.3 sec (9.6-11.0)
[2024-01-01 05:55] LABS: CLARITY URINE CLEAR (CLEAR); COLOR URINE YELLOW (YELLOW); GLUCOSE URINE NEGATIVE (NEGATIVE); KETONES URINE NEGATIVE (NEGATIVE); LEUKOCYTE ESTERASE URINE TRACE (NEGATIVE); NITRITE URINE NEGATIVE (NEGATIVE); OCCULT BLOOD URINE NEGATIVE (NEGATIVE); PH URINE 7.5 (4.5-8.0); PROTEIN URINE 2+ (NEGATIVE); SPECIFIC GRAVITY URINE 1.006 (1.005-1.030); UROBILINOGEN URINE 0.2 E.U./dL (0.2-1.0)
[2024-01-01 06:03] LABS: *AMPHETAMINES SCREEN URINE NEGATIVE (NEGATIVE); *BARBITURATES SCREEN URINE NEGATIVE (NEGATIVE); *BENZODIAZEPINES SCREEN URINE NEGATIVE (NEGATIVE); *COCAINE SCREEN URINE NEGATIVE (NEGATIVE); METHADONE URINE SCREEN NEGATIVE (NEGATIVE); OPIATES URINE SCREEN NEGATIVE (NEGATIVE)
[2024-01-01 06:04] LABS: CANNABINOID URINE SCREEN NEGATIVE (NEGATIVE); ECSTASY MDMA SCREEN URINE NEGATIVE (NEGATIVE); PHENCYCLIDINE URINE SCREEN NEGATIVE (NEGATIVE)
[2024-01-01 06:31] LABS: BACTERIA URINE NONE SEEN; RBC URINE NONE SEEN /hpf (0-2); SQUAMOUS EPITHELIAL CELL URINE NONE SEEN /lpf (RARE/1+); WBC URINE NONE SEEN /hpf (0-2)
[2024-01-01] MEDS ORDERED: DOCUSATE SODIUM 100MG CAPSULE PO PRN (09:30)
[2024-01-01] MEDS ORDERED: IPRATROPIUM/ALBUTEROL 0.5-3(2.5)MG/3ML NEB HHN PRN ×2 (09:30→13:45)
[2024-01-01] MEDS ORDERED: CLONIDINE 0.1MG TABLET PO PRN (09:30)
[2024-01-01] MEDS ORDERED: ONDANSETRON HCL 4MG/2ML INJ IV PRN (09:30)
[2024-01-01] MEDS ORDERED: ACETAMINOPHEN 325MG TABLET PO PRN (09:30)
[2024-01-01] MEDS: AMLODIPINE 10MG TABLET PO SCH (09:55)
[2024-01-01] MEDS: ACETAMINOPHEN 325MG TABLET PO PRN (10:04)
[2024-01-01 10:37] VITALS: PULSE 97; RESP 16; O2SAT 99
[2024-01-01] MEDS: IPRATROPIUM/ALBUTEROL 0.5-3(2.5)MG/3ML NEB HHN SCH (10:37)
[2024-01-01 12:45] LABS: CREATINE KINASE MB FRACTION 2.4 ng/mL (0.5-3.6)
[2024-01-01 12:49] LABS: T4 FREE 1.15 ng/dL (0.89-1.76)
[2024-01-01 12:50] LABS: THYROID STIMULATING HORMONE 2.48 uIU/mL (0.55-4.78)
[2024-01-01] MEDS ORDERED: AZITHROMYCIN 500MG/250ML 250 ML IV SCH (15:00)
[2024-01-01] MEDS: BUDESONIDE 0.5MG/2ML NEB HHN SCH (15:45)
[2024-01-01] MEDS ORDERED: CEFEPIME 1GM/50ML 50 ML IV SCH (16:00)
[2024-01-01] MEDS ORDERED: CLINDAMYCIN 600MG PREMIX 50 ML IV SCH (16:30)
[2024-01-01 19:54] VITALS: BP 160/74; PULSE 93; RESP 15; TEMP 36.8628
[2024-01-01 20:00] VITALS: BP 143/100; PULSE 89; RESP 18; TEMP 37.00296; O2SAT 100
[2024-01-01] MEDS: METOPROLOL TARTRATE 50MG TABLET PO SCH (20:47)
[2024-01-01] MEDS: FUROSEMIDE 40MG/4ML VIAL IVP SCH (20:47)
[2024-01-01] MEDS: ENOXAPARIN 40MG/0.4ML SYR SUBCUT SCH (20:49)
[2024-01-02] VITALS (10 sets, daily range): BP systolic 117–145; BP diastolic 67–105; PULSE 73–100; RESP 16–31; TEMP 36.50292–37.16964; O2SAT 93–100
[2024-01-02 06:50] LABS: BASOPHILS % 0.6 % (0.0-2.0); EOSINOPHILS % 1.5 % (0.0-5.0); HEMATOCRIT. 38.1 % (36.0-48.0); HEMOGLOBIN. 12.2 g/dL (12.0-16.0); LYMPHOCYTES % 11.7 % (20.0-50.0); MEAN CORPUSCULAR HEMOGLOBIN 27.4 pg (28.0-32.0); MEAN CORPUSCULAR HGB CONC 31.9 g/dL (31.0-37.0); MEAN PLATELET VOLUME 8.9 fl (7.4-10.4); MONOCYTES % 4.5 % (2.0-8.0); NEUTROPHILS % 81.7 % (40.0-76.0); PLATELET 153 x1000/uL (130-400); RED BLOOD CELL COUNT 4.43 mill/uL (4.2-5.4); WHITE BLOOD COUNT 7.1 x1000/uL (4.5-11.0)
[2024-01-02 07:05] LABS: PROTHROMBIN TIME 10.8 sec (9.6-11.0)
[2024-01-02 07:13] LABS: CALCIUM 9.1 mg/dL (8.7-10.4); CARBON DIOXIDE 38 mEq/L (21-32); CHLORIDE 95 mEq/L (98-107); POTASSIUM 3.4 mEq/L (3.5-5.1); SODIUM 138 mEq/L (136-145)
[2024-01-02 07:18] LABS: CREATININE 1.3 mg/dL (0.6-1.0); GLUCOSE 149 mg/dL (70-105); UREA NITROGEN BLOOD 28 mg/dL (9-23)
[2024-01-02 07:19] LABS: TRIGLYCERIDE 156 mg/dL (0-150)
[2024-01-02 07:20] LABS: ALANINE AMINOTRANSFERASE 8 IU/L (10-49); ALBUMIN 3.8 g/dL (3.2-4.8); ASPARTATE AMINOTRANSFERASE 17 IU/L (<34); CHOLESTEROL 174 mg/dL (<200); LDL CHOLESTEROL 102 mg/dL (5-100); PROTEIN TOTAL 6.5 g/dL (6.0-8.3)
[2024-01-02 07:21] LABS: BILIRUBIN TOTAL 0.2 mg/dL (0.1-1.0); HDL CHOLESTEROL 53 mg/dL (>65); PHOSPHORUS 2.9 mg/dL (2.5-4.9)
[2024-01-02 07:27] LABS: BILIRUBIN DIRECT < 0.1 mg/dL (<=3.0)
[2024-01-02 07:31] LABS: CREATINE KINASE MB FRACTION 1.1 ng/mL (0.5-3.6)
[2024-01-02] MEDS: ASPIRIN 81MG TABLET PO SCH (09:51)
[2024-01-02] MEDS: PANTOPRAZOLE SODIUM 40 MG/VIAL IV SCH (10:36)
[2024-01-02] MEDS: POTASSIUM CHLORIDE 20MEQ TABLET SR PO NR (11:18)
[2024-01-03] VITALS (10 sets, daily range): BP systolic 94–131; BP diastolic 50–87; PULSE 71–100; RESP 18–27; TEMP 36.83628–37.00296; O2SAT 98–100
[2024-01-03] MEDS: POTASSIUM CHLORIDE 20MEQ TABLET SR PO SCH (08:27)
[2024-01-03] MEDS: AMLODIPINE 2.5MG TABLET PO SCH (08:28)
[2024-01-03 08:35] LABS: ALBUMIN 3.9 g/dL (3.2-4.8)
[2024-01-03 08:36] LABS: PREALBUMIN 13.7 mg/dl (10.0-40.0)
[2024-01-03] MEDS: ATORVASTATIN CALCIUM 10MG TABLET PO SCH (21:43)
[2024-01-04] VITALS (10 sets, daily range): BP systolic 119–130; BP diastolic 67–81; PULSE 81–98; RESP 17–24; TEMP 36.55848–36.6696; O2SAT 98–100
[2024-01-04 08:47] LABS: CHLORIDE 94 mEq/L (98-107); INR 0.9; POTASSIUM 4.7 mEq/L (3.5-5.1); PROTHROMBIN TIME 10.3 sec (9.6-11.0); SODIUM 137 mEq/L (136-145)
[2024-01-04 08:48] LABS: CALCIUM 9.3 mg/dL (8.7-10.4)
[2024-01-04 08:51] LABS: EOSINOPHILS % 3.3 % (0.0-5.0); HEMATOCRIT. 35.8 % (36.0-48.0); HEMOGLOBIN. 11.1 g/dL (12.0-16.0); LYMPHOCYTES % 11.9 % (20.0-50.0); MEAN CORPUSCULAR HEMOGLOBIN 27.2 pg (28.0-32.0); MEAN CORPUSCULAR HGB CONC 30.9 g/dL (31.0-37.0); MEAN CORPUSCULAR VOLUME 87.8 fL (81.0-99.0); MEAN PLATELET VOLUME 9.4 fl (7.4-10.4); MONOCYTES % 5.9 % (2.0-8.0); NEUTROPHILS % 77.9 % (40.0-76.0); PLATELET 165 x1000/uL (130-400); RED BLOOD CELL COUNT 4.07 mill/uL (4.2-5.4); WHITE BLOOD COUNT 6.8 x1000/uL (4.5-11.0)
[2024-01-04 08:53] LABS: CREATININE 1.3 mg/dL (0.6-1.0); GLUCOSE 95 mg/dL (70-105); UREA NITROGEN BLOOD 46 mg/dL (9-23)
[2024-01-04 08:55] LABS: ALANINE AMINOTRANSFERASE < 7 IU/L (10-49); ALBUMIN 3.7 g/dL (3.2-4.8); ASPARTATE AMINOTRANSFERASE 16 IU/L (<34); BILIRUBIN TOTAL 0.3 mg/dL (0.1-1.0); PROTEIN TOTAL 6.6 g/dL (6.0-8.3)
[2024-01-04 09:06] LABS: CARBON DIOXIDE > 40 mEq/L (21-32)
[2024-01-04] MEDS ORDERED: FURO20TA4 PO (11:56)
[2024-01-04] MEDS ORDERED: ALLO100T PO (12:08)
[2024-01-04] MEDS ORDERED: ASPI-1497 PO (12:08)
[2024-01-04] MEDS ORDERED: IPRA3AMP31 NEB (12:08)
[2024-01-04] MEDS ORDERED: PRED5SOL22 PO (12:08)
[2024-01-04] MEDS ORDERED: FOLI-43 PO (12:08)
[2024-01-04] MEDS ORDERED: FERR-71 MT (12:08)
[2024-01-04] MEDS ORDERED: PANT40TA51 PO (12:08)
[2024-01-04] MEDS ORDERED: T3 PO (12:08)
[2024-01-04] MEDS ORDERED: SIMV10TA97 MT (12:08)
[2024-01-04] MEDS ORDERED: POTA10CA93 PO (12:08)
[2024-01-04] MEDS ORDERED: CARV6.2548 PO (12:08)
[2024-01-04 20:13] LABS: CREATINE KINASE 22 IU/L (34-145)
[2024-01-05] MEDS ORDERED: FAMOTIDINE 20MG/2ML VIAL IV SCH (09:00)
== END 2024-01-04 19:01 | disposition home or self-care (01) | DRG 194 ==
LOC: ER 01:17 → 5WST 02:27 → EDBEDREQ 02:30 → EDBEDREQTM 02:30 → EDBEDREQ 02:31 → 3WST 17:56
PROVIDERS: ADMIT Internal Medicine; ATTEND Internal Medicine
PROC: 4B02XTZ Measurement of Cardiac Defibrillator, External Approach (ICD-10-PCS; principal; 2024-01-02)
DX: I13.0 Hypertensive heart and chronic kidney disease with heart failure and stage 1 through stage 4 chronic kidney disease, or unspecified chronic kidney disease (principal); I21.A1 Myocardial infarction type 2; E87.3 Alkalosis; N17.9 Acute kidney failure, unspecified; E86.1 Hypovolemia; L89.156 Pressure-induced deep tissue damage of sacral region; I42.0 Dilated cardiomyopathy; J96.10 Chronic respiratory failure, unspecified whether with hypoxia or hypercapnia; I50.23 Acute on chronic systolic (congestive) heart failure; I16.0 Hypertensive urgency; D64.9 Anemia, unspecified; N18.1 Chronic kidney disease, stage 1; E78.5 Hyperlipidemia, unspecified; K21.9 Gastro-esophageal reflux disease without esophagitis; E87.6 Hypokalemia; I34.0 Nonrheumatic mitral (valve) insufficiency; J45.909 Unspecified asthma, uncomplicated; M79.7 Fibromyalgia; Z79.899 Other long term (current) drug therapy; Z82.49 Family history of ischemic heart disease and other diseases of the circulatory system; Z88.1 Allergy status to other antibiotic agents; Z95.810 Presence of automatic (implantable) cardiac defibrillator; Z91.148 Patient's other noncompliance with medication regimen for other reason
CPT/HCPCS: 36415; 71045; 76770; 80048; 80053; 80061; 80076; 80305; 80320; 81003; 82040; 82550; 82553; 83036; 83735; 83880; 84100; 84134; 84439; 84443; 84480; 84484; 84703; 85025; 85379; 93005; 93306; 94640; 99285; A6261; J0360; J0692; J1650; J1940; J2470; J3490; J7626; G0480